=== PATIENT | female | born 1945 | race Caucasian/White ===

== ENCOUNTER 2017-07-16 10:10 | Inpatient (IN) | payer OTHER ==
[2017-07-07 14:23] VITALS: BMI 27.0
--- NOTE | 2017-07-07 15:13 | PAT Medication Instructions ---
Service Date Jul 07, 2017. Current Home Medication List Amlodipine (Norvasc), 10 MG PO QAM Aspirin (Aspirin Ec), 81 MG PO QAM Clopidogrel (Plavix), 75 MG PO QAM Ferrous Sulfate (Iron), 1 TAB PO QAM Furosemide (Lasix), 20 MG PO QAM Isosorbide Dinitrate (Isordil), 30 MG PO HS Linagliptin (Tradjenta), 1 TAB PO QAM Metformin Hcl (Glucophage), 500 MG PO BID Metoprolol Succ (Toprol Xl) (Toprol-Xl ), 50 MG PO HS Nitroglycerin (Nitrostat), 1 TAB SL UD Ramipril (Altace), 5 MG PO DAILY Rosuvastatin Calcium (Crestor), 40 MG PO HS Sertraline (Zoloft), 50 MG PO QAM Sertraline (Zoloft), 25 MG PO HS Tiotropium Cooks-Olodaterol (Stiolto Respimat 2.5-2.5 Mcg/Act), 2 PUFFS INH QAM Medication Instructions For Your Scheduled Surgery - Hold the following medications 5 days prior to surgery per surgeon and dialysis clinical manager: Clopidogrel (Plavix), 75 MG PO QAM - Hold the following medications 48 hours prior to surgery: Metformin Hcl (Glucophage), 500 MG PO BID - Hold the following medications the morning of surgery: Ferrous Sulfate (Iron), 1 TAB PO QAM Furosemide (Lasix), 20 MG PO QAM Linagliptin (Tradjenta), 1 TAB PO QAM Ramipril (Altace), 5 MG PO DAILY - Take the following medications the morning of surgery with a sip of water: Tiotropium Cooks-Olodaterol (Stiolto Respimat 2.5-2.5 Mcg/Act), 2 PUFFS INH QAM Sertraline (Zoloft), 50 MG PO QAM Nitroglycerin (Nitrostat), 1 TAB SL UD (if needed) Amlodipine (Norvasc), 10 MG PO QAM Aspirin (Aspirin Ec), 81 MG PO QAM (okay to continue per surgeon per patient) - Take the following medications as scheduled the night before surgery: Sertraline (Zoloft), 25 MG PO HS Rosuvastatin Calcium (Crestor), 40 MG PO HS Nitroglycerin (Nitrostat), 1 TAB SL UD (if needed) Metoprolol Succ (Toprol Xl) (Toprol-Xl ), 50 MG PO HS Isosorbide Dinitrate (Isordil), 30 MG PO HS If you have any questions please call us at [phone] or [phone] or [phone]
[2017-07-07 15:33] LABS: BASO % 0.5 %; BASO ABS # 0.03 K/uL (0-0.2); COMPLETE YES; EOS % 3.9 %; HEMATOCRIT 39.8 % (37-47); IG% 0.2 %; LYMPH % 17.6 %; LYMPH ABS # 1.12 K/uL (1.2-3.4); MEAN CELL VOLUME 91.5 fL (80-100); MEAN CORPUSCULAR HEMOGLOBIN 29.9 pg (25-34); MEAN CORPUSCULAR HGB CONC 32.7 g/dl (32-36); MEAN PLATELET VOLUME 9.7 fL (7.4-10.4); MONO % 12.6 %; NEUT % 65.2 %; PLATELET COUNT 251 K/uL (130-400); RED BLOOD COUNT 4.35 M/uL (4.2-5.4); WHITE BLOOD COUNT 6.37 K/uL (4.8-10.8)
[2017-07-07 15:46] LABS: PROTHROMBIN TIME (PATIENT) 10.2 SECONDS (9.0-12.0)
[2017-07-07 16:14] LABS: BUN/CREATININE RATIO 13.9 (10-20); CALCIUM 10.1 mg/dl (8.5-10.1); CREATININE 2.7 mg/dl (0.60-1.20); POTASSIUM 4.9 mmol/L (3.5-5.1)
[~2017-07-16] VITALS: Ht 160 cm; Wt 74.2 kg
[2017-07-16] VITALS (12 sets, daily range): BP systolic 118–188; BP diastolic 52–87; PULSE 57–69; TEMP 35.3–36.6; O2SAT 97–99; Ht 160 cm; Wt 74.2 kg
[~2017-07-16 10:10] MED LIST: AMLO-114 PO; ASPI81TA28 PO; ATROPINE SULFATE 0.1 MG/ML 5ML SYR IV PRN; CLOP1TAB15 PO; CRS/10 PO; EpHEDrine SULFATE INJ 50 MG/ML AMP IV PRN; FENTANYL CITRATE INJ 50 MCG/1 ML 2 ML VIAL IV PRN; FERR1TAB23 PO; FURO-85 PO; GLC/500 PO; HYDROmorphone INJ 1 MG/ML SYR IV PRN; ISOS30TA51 PO; LINA1TAB PO; METO1TAB69 PO; NTRGSL/4 SL; ONDANSETRON INJ 2 MG/ML 2 ML VIAL IV PRN; PRLSR20 PO; RAMI5CAP32 PO; SERT25TA PO; SERT50TA PO; SODIUM CHLORIDE 0.9% 1000ML 1,000 ML IV SCH; TIOT1AER INH
--- NOTE | 2017-07-16 11:18 | History & Physical Bridge Note ---
H&P Re-Evaluation Bridge Note: I have examined the patient, reviewed the History & Physical and in the interval since the performance of the History & Physical I have noted the following changes of clinical significance: No changes noted
[2017-07-16] MEDS ORDERED: FENTANYL CITRATE INJ 50 MCG/1 ML 2 ML VIAL ONE ×4 (11:32→20:48)
[2017-07-16 11:41] LABS: BUN/CREATININE RATIO 13.6 (10-20); CALCIUM 9.7 mg/dl (8.5-10.1); CREATININE 1.8 mg/dl (0.60-1.20); POTASSIUM 4.1 mmol/L (3.5-5.1)
[2017-07-16] MEDS ORDERED: BUPIVACAINE LIPOSOME 1/3% 266 MG/20 ML VIAL INFIL ONE (11:46)
[2017-07-16] MEDS ORDERED: SODIUM CHLORIDE 0.9% PF 50 ML VIAL ONE (11:49)
[2017-07-16] MEDS ORDERED: PROPOFOL IV EMULSION 10 MG/ML 20 ML VIAL IV ONE (13:55)
[2017-07-16] MEDS ORDERED: CLINDAMYCIN PHOS 150 MG/ML 2 ML VIAL ONE (13:55)
[2017-07-16] MEDS ORDERED: LIDOCAINE HCL 2% 2 ML VIAL (20MG/ML) ONE (13:55)
[2017-07-16] MEDS ORDERED: LARYING-O-JET KIT (LTA) ONE ×2 (13:55)
[2017-07-16] MEDS ORDERED: ONDANSETRON INJ 2 MG/ML 2 ML VIAL ONE ×2 (13:55→19:11)
[2017-07-16] MEDS ORDERED: CISATRACURIUM BESYLATE IV SOLN 2 MG/ML 10 ML VIAL ONE (13:55)
[2017-07-16] MEDS ORDERED: DEXAMETHASONE SOD INJ 4 MG/ML VIAL ONE (13:55)
[2017-07-16] MEDS ORDERED: ROCURONIUM BROMIDE 10 MG/ML 5 ML VIAL IV ONE (13:55)
[2017-07-16] MEDS ORDERED: EpHEDrine SULFATE 50MG/5ML SYR ONE (13:55)
[2017-07-16] MEDS ORDERED: PHENYLEPHRINE HCL INJ 10 MG/ML VIAL ONE (14:51)
[2017-07-16] MEDS ORDERED: SURGICEL ABSORB HEMOSTAT 2IN X 14IN TOP ONE (15:31)
--- NOTE | 2017-07-16 18:05 | OPERATIVE REPORT ---
DATE OF OPERATION: 07/16/2017 PREOPERATIVE DIAGNOSIS: Non-small cell lung carcinoma, left upper lobe. POSTOPERATIVE DIAGNOSIS: Same. PROCEDURE: Videomediastinoscopy. SURGEON: Dr. Cuco Christine. FORESTRY AND WILDLIFE MANAGER: Eh Trammell PA-C. ANESTHESIA: General anesthesia endotracheal intubation. INDICATION FOR PROCEDURE AND FINDINGS: Narcisa Collado is a 71-year-old female who has somewhat compromised lung function, was found to have a non-small cell lung carcinoma in her left upper lobe. PET scan did not show any abnormalities in the mediastinum; however, I was a bit concerned about the size of the right level 4 node. The patient had to travel from [facility] to the [place], [place] and I felt that doing a mediastinoscopy with frozen section and then turning her and doing a thoracoscopic left upper lobectomy if the frozen sections is negative would be appropriate. We discussed this in detail. On 07/17/2017, I performed an uncomplicated mediastinoscopy and biopsied the right level 2, right level 4, right level 10, left level 7, left level 4 lymph nodes. We really got into no bleeding. She tolerated it well. Frozen sections are pending at the time of this dictation. PROCEDURE: The patient was brought to the operating room and laid in the supine position. General anesthesia induced and endotracheal intubation was performed with a single lumen tube. An incision was made one fingerbreadth above the sternal notch after the area had been properly prepped and draped in the usual sterile fashion, and after an appropriate timeout had been called and antibiotics had been given. She has a very thin neck and I went down to the strap muscles without difficulty and them in the direction of their fibers. I then was able to bluntly dissect the plane just anterior to the thyroid isthmus. The mediastinoscope was easily inserted and we could easily see all the way down to the cullen. I biopsied the level 2 node. Level 4 node was fairly fleshy and white. Level 10 node below the azygos was also biopsied. I then went down into the subcarinal area and biopsied a couple of different lymph nodes. One was acanthotic and appeared to be rather normal, but the other was hard and white also. I used the electrocautery to the level 4 area on the right a bit, but she really had minor oozing from the level 7 area and I packed this with a piece of Surgicel. Attention was then turned towards the left and I gently dissected out a lymph node from the left level 4 area which also appeared to be fairly fleshy. I biopsied this gingerly and did not use cautery. There was mild bleeding, but we packed the area with a Ray-Mara sponge for several minutes and then removed it and there was no further bleeding. The mediastinoscope was slowly removed. There was no evidence of further bleeding. 3-0 Vicryl was used to close the strap muscles direction of fibers and 4-0 Monocryl was used in running subcuticular fashion to approximate the wound edges. She tolerated it very well. We are waiting for the frozen sections now. I attest to the content of the Intraoperative Record and any orders documented therein. Any exceptions are noted below. FIDELINA
[2017-07-16] MEDS ORDERED: NITROGLYCERIN 0.4 MG SL PER TAB CHARGE SL SCH (18:15)
[2017-07-16] MEDS ORDERED: SODIUM CHLORIDE 0.9% 1000ML 1,000 ML IV SCH (18:15)
--- NOTE | 2017-07-16 18:45 | DIAGNOSTIC IMAGING REPORT ---
CHEST ONE VIEW PORTABLE CLINICAL HISTORY: 71 years-old Female presenting with SIVAKUMAR abnormality. TECHNIQUE: Portable upright AP view of the chest was obtained. COMPARISON: 06/17/2017 and 06/25/2017. FINDINGS: Large bore left pleural drain terminates at the apex. Median sternotomy wires noted with breakage of the superior and inferior most wires. Wire fragment displacement along the right superior wire unchanged. Surgical clips in the mediastinum and projecting over the epigastrium, unchanged. Atherosclerosis of aortic arch. Prominence of the cardiac silhouette, stable to slightly increased from prior. Elevation of the left hemidiaphragm. Vague left basilar opacity new from prior. Trace left pneumothorax may be present anteromedially. No large effusion. Osseous structures normal. Upper abdomen normal. IMPRESSION: 1. Left basilar opacity could represent consolidation/infection. 2. Large bore left pleural drain terminates at the apex. A possible trace left apical pneumothorax is noted, however, the appearance is not changed since 06/25/2017. 3. Cardiomegaly. Electronically signed by: Tobias Ramos M.D. 07/16/2017 6:44 PM Dictated Date/Time: 07/16/2017 6:40 PM
--- NOTE | 2017-07-16 18:47 | Anesthesiology Progress Note ---
Anesthesia Post Op Note Date & Time Jul 16, 2017 at 18:46 Vital Signs Pain Intensity: 1 Vital Signs Past 12 Hours Date Time Temp Pulse Resp B/P (MAP) Pulse Ox O2 Delivery O2 Flow Rate FiO2 07/16/17 18:35 61 16 134/52 98 Oxymask 4 07/16/17 18:25 60 16 135/60 98 Oxymask 10 07/16/17 18:15 64 16 139/66 98 Oxymask 10 07/16/17 18:07 36 71 16 158/74 97 Oxymask 10 07/16/17 11:18 36.6 63 16 188/87 (120) 97 Room Air Notes Mental Status: alert / awake / arousable, participated in evaluation Pt Amnestic to Procedure: Yes Nausea / Vomiting: adequately controlled Pain: adequately controlled Airway Patency, RR, SpO2: stable & adequate BP & HR: stable & adequate Hydration State: stable & adequate Anesthetic Complications: no major complications apparent
--- NOTE | 2017-07-16 19:20 | Critical Care Consultation ---
Critical Care Consultation Date of Consultation: Jul 16, 2017. Attending Physician: Cuco Christine MD Reason for Consultation: Respiratory insufficiency, status post left upper lobectomy. History of Present Illness I personally examined this patient, reviewed her clinical and laboratory data, interpreted heart x-ray and formulated further plan of care. In summary, the patient is a 71 year old female with COPD who was found to have left upper lobe non-small cell lung cancer. PET scan did not reveal any mediastinal abnormalities. There was concern about the size of the right level 4 lymph node. Patient underwent uncomplicated mediastinoscopy, and left upper lobectomy. Minimal estimated blood loss. Patient was extubated and postoperative holding area and transferred critically ill to the surgical intensive care and for further management. Past Medical/Surgical History COPD, Hypertension, Peripheral vascular disease, Coronary artery disease, GERD, Chronic kidney disease stage 2, Depression, Diabetes mellitus type 2. Family History Heart problems, COPD, High blood pressure. Social History Smoking Status: Former Smoker Drug Use: none Occupation Status: retired Allergies Coded Allergies: No Known Allergies (Unverified , 07/16/17) Home Medications Scheduled Amlodipine (Norvasc), 10 MG PO QAM Aspirin (Aspirin Ec), 81 MG PO QAM Clopidogrel (Plavix), 75 MG PO QAM Ferrous Sulfate (Iron), 1 TAB PO QAM Furosemide (Lasix), 20 MG PO QAM Isosorbide Dinitrate (Isordil), 30 MG PO HS Linagliptin (Tradjenta), 1 TAB PO QAM Metformin Hcl (Glucophage), 500 MG PO BID Metoprolol Succ (Toprol Xl) (Toprol-Xl ), 50 MG PO HS Nitroglycerin (Nitrostat), 1 TAB SL UD Rosuvastatin Calcium (Crestor), 40 MG PO HS Sertraline (Zoloft), 50 MG PO QAM Sertraline (Zoloft), 25 MG PO HS Tiotropium [place]owa-Olodaterol (Stiolto Respimat 2.5-2.5 Mcg/Act), 2 PUFFS INH QAM Current Inpatient Medications Current Inpatient Medications Medications (Trade) Dose Ordered Sig/Josep Route Start Time Stop Time Status Last Admin Dose Admin Sodium Chloride 1,000 ml @ 15 mls/hr Q24H IV 07/16/17 06:00 07/17/17 05:59 07/16/17 11:36 15 MLS/HR Amlodipine Besylate (Norvasc Tab) 10 mg QAM PO 07/17/17 09:00 08/16/17 08:59 UNV Aspirin (Ecotrin Tab) 81 mg QAM PO 07/17/17 09:00 08/16/17 08:59 UNV Metoprolol Succinate (Toprol Xl Tab) 50 mg HS PO 07/16/17 21:00 08/15/17 20:59 UNV Nitroglycerin (Nitrostat Tab) 0.4 mg UD SL 07/16/17 18:15 08/15/17 18:14 UNV Rosuvastatin Calcium (Crestor Tab) 40 mg HS PO 07/16/17 21:00 08/15/17 20:59 UNV Sertraline HCl (Zoloft Tab) 25 mg HS PO 07/16/17 21:00 08/15/17 20:59 UNV Sertraline HCl (Zoloft Tab) 50 mg QAM PO 07/17/17 09:00 08/16/17 08:59 UNV Non-Formulary Medication (Ferrous Sulfate (Iron)) 1 tab QAM PO 07/17/17 09:00 08/16/17 08:59 UNV Non-Formulary Medication (Isosorbide Dinitrate (Isordil)) 30 mg HS PO 07/16/17 21:00 08/15/17 20:59 UNV Non-Formulary Medication (Tiotropium Kiowa-Olodaterol (Stiolto Respimat 2.5-2.5 Mcg/Act)) 2 puffs QAM INH 07/17/17 09:00 08/16/17 08:59 UNV Oxycodone HCl (Roxicodone Immediate Rel Tab) 5 mg Q6H PRN PO 07/16/17 18:15 07/30/17 18:14 UNV Acetaminophen 1000 mg/Empty Bag 100 ml @ 400 mls/hr Q8H IV 07/16/17 18:15 08/15/17 18:14 UNV Enoxaparin Sodium (Lovenox Inj) 40 mg DAILY SQ 07/17/17 09:00 08/16/17 08:59 UNV Ondansetron HCl (Zofran Inj) 4 mg Q4H PRN IV 07/16/17 18:15 08/15/17 18:14 UNV Docusate Sodium (coLACE CAP) 100 mg BID PO 07/16/17 21:00 08/15/17 20:59 UNV Cefazolin Sodium 2000 mg/Dextrose 110 ml @ 100 mls/hr Q8H IV 07/16/17 18:15 07/17/17 03:20 UNV Metoclopramide HCl (Reglan Inj) 10 mg Q8 IV. 07/16/17 22:00 07/17/17 21:59 UNV Morphine Sulfate (MoRPHine SULFATE INJ) Q1H PRN IV 07/16/17 18:15 07/30/17 18:14 UNV Sodium Chloride 1,000 ml @ 75 mls/hr [id number] IV 07/16/17 18:15 08/15/17 18:14 UNV Insulin Aspart (novoLOG ASPART) SLIDING SCALE G... ACHS SC 07/16/17 21:00 08/15/17 20:59 UNV Review of Systems Constitutional: + weakness, + fatigue Respiratory: + problem reported (incisional pain) Musculoskeletal: + problem reported (back pain) Physical Exam Date Time Temp Pulse Resp B/P (MAP) Pulse Ox O2 Delivery O2 Flow Rate FiO2 07/16/17 19:00 36.3 63 16 127/53 97 Oxymask 4 07/16/17 18:50 36.3 62 16 137/54 97 Oxymask 4 07/16/17 18:35 61 16 134/52 98 Oxymask 4 07/16/17 18:25 60 16 135/60 98 Oxymask 10 07/16/17 18:15 64 16 139/66 98 Oxymask 10 07/16/17 18:07 36 71 16 158/74 97 Oxymask 10 07/16/17 11:18 36.6 63 16 188/87 (120) 97 Room Air Patient is elderly female who came to the SICU extubated from the PACU. She is still lethargic, cough is weak, uncomfortable secondary to incisional pain. Neurologically, patient is alert and oriented 3. She is weak. Speech is clear. Head was atraumatic, normocephalic. Pupils were equal, round and reactive to light. Mouth mucosa was moist. Neck was supple, no JVD. Lungs revealed decreased breath sounds at bases. Neck and chest incisions were dry, intact. Left-sided chest tube with 75 mL of serosanguineous fluid, minimal ear leak with cough. Heart was beating regularly, normal S1-S2. There was no S3. Abdomen was soft, nontender, no hepatosplenomegaly, no palpable masses. Lower extremities were warm, no calf tenderness, no edema, well-perfused. Laboratory Results Last 24 Hours Test 07/16/17 11:01 Sodium Level 139 mmol/L Potassium Level 4.1 mmol/L Chloride Level 107 mmol/L Carbon Dioxide Level 27 mmol/L Anion Gap 5.0 mmol/L Blood Urea Nitrogen 24 mg/dl Creatinine 1.80 mg/dl Est Creatinine Clear Calc Drug Dose 27.4 ml/min Estimated GFR () 32.5 Estimated GFR (Non- 28.0 BUN/Creatinine Ratio 13.6 Bedside Glucose 98 mg/dl Random Glucose 96 mg/dl Calcium Level 9.7 mg/dl Assessment & Plan 1. Left upper lobe non-small cell cancer, sp mediastinoscopy and left upper lobectomy. Left chest tube 75 mL of serosanguineous drainage, no obvious air leak. 2. Respiratory insufficiency. We'll titrate oxygen to keep saturation above 92 %, incentive spirometry for atelectasis prevention. COPD, inhalers on as needed basis. 3. Hemodynamics: Sinus rhythm, adequate blood pressure, well perfused peripherally. History of coronary artery disease, no signs of cardiac ischemia. We'll continue with home metoprolol. 4. Renal insufficiency, CK-MB stage II. We'll continue with gentle hydration, replace electrolytes appropriately. 5. Postoperative pain, we'll continue with morphine, oxycodone, Tylenol on an as needed basis. 6. DVT prophylaxis with Lovenox. 7. Hyperglycemia on insulin sliding scale. CCT = 32 min.
[2017-07-16] MEDS: METOCLOPRAMIDE HCL INJ 5 MG/ML 2 ML VIAL IV. SCH (20:20)
[2017-07-16] MEDS ORDERED: INFLUENZA ADMINISTRATION CHARGE ONE (20:45)
[2017-07-16] MEDS ORDERED: INFLUENZA VIRUS QUAD VACCINE 0.5 ML SYR IM. ONE (20:45)
[2017-07-16] MEDS ORDERED: NURSING VERBAL MED ORDER ONE (20:45)
[2017-07-16] MEDS: INSULIN ASPART 100 UNITS/ML 3 ML PEN SC SCH (20:57)
[2017-07-16] MEDS: SERTRALINE HCL 50 MG TAB PO SCH (21:00)
[2017-07-16] MEDS: DOCUSATE SODIUM 100 MG CAP PO SCH (21:00)
[2017-07-16] MEDS: FENTANYL CITRATE INJ 50 MCG/1 ML 2 ML VIAL IV PRN (21:00)
[2017-07-16] MEDS: ROSUVASTATIN CALCIUM 20 MG TAB PO SCH (21:00)
[2017-07-16] MEDS: ISOSORBIDE DINITRATE 10 MG TAB PO SCH (21:00)
[2017-07-16] MEDS: METOPROLOL SUCC 50MG EXT REL TAB PO SCH (21:00)
[2017-07-16] MEDS: METOPROLOL TARTRATE 1 MG/ML VIAL IV. SCH (21:02)
[2017-07-16] MEDS: ACETAMINOPHEN IV 1,000 MG in EMPTY BAG 0 ML IV SCH (21:06)
[2017-07-16] MEDS ORDERED: INFLUENZA VACCINE HIGH DOSE 65+ 0.5 ML SYR IM. ONE (21:45)
[2017-07-16] MEDS: OXYCODONE HCL IR 5 MG TAB (IMMEDIATE RELEASE) PO PRN (21:58)
[2017-07-16] MEDS: CEFAZOLIN IV 2,000 MG in DEXTROSE 5% 50ML 100 ML IV SCH (21:59)
[2017-07-17] VITALS (17 sets, daily range): BP systolic 92–151; BP diastolic 44–66; PULSE 59–82; TEMP 36.6–37; O2SAT 91–99
--- NOTE | 2017-07-17 00:21 | OPERATIVE REPORT ---
DATE OF OPERATION: 07/16/2017 PREOPERATIVE DIAGNOSIS: Nonsmall cell lung cancer, left upper lobe. POSTOPERATIVE DIAGNOSIS: Same. PROCEDURE: 1. Thoracoscopic left upper lobectomy with mediastinal lymph node dissection. 2. Extensive lysis of adhesions with preservation of patent internal mammary artery graft. SURGEON: Dr. Christine. CORRECTIONAL OFFICER SERGEANT: MARLO Vernon. ANESTHESIA: General anesthesia with endotracheal intubation using double lumen tube. SPECIFICS OF PROCEDURE: This is a 71-year-old female who was found to have a nonsmall cell lung CA of her left upper lobe. I was a bit concerned about the closeness to the chest wall; however, after it was needled and her workup was done, we did not feel she had metastatic disease. However, I wanted to sample her mediastinum. I did a video mediastinoscopy and biopsied 5 different lymph node stations and they were all negative for carcinoma, although there were non-necrotizing granulomas suggestive of sarcoidosis. The patient was then turned on her right side and underwent a thoracoscopic left upper lobectomy. This was a difficult case as the patient had marked adhesions. She must have had an inflammatory process sometime in the past as both lobes were completely stuck to the chest wall. I was finally able to get in and take these down with the Harmonic scalpel, went all the way down, took the lower lobe off the diaphragm, and then with some difficulty, all this from the mediastinal tissues. She had also had open heart surgery in the past with a patent internal mammary artery graft which was supplying much of her heart. I attempted to take down the left upper lobe but it was densely adherent to the medial left upper chest. I finally decided to simply take the left upper lobe first. For this reason, I took the arteries, veins and airway, and then coming up from posterior to anterior orientation, I was able to finally identify this pedicle and care was taken to avoid injury to it. I was finally able to get the lung off this and remove it. It was delivered off the table. She tolerated it well and was extubated in the room. PROCEDURE IN DETAIL: The patient was brought to the operating room and laid in supine position. General anesthesia was induced and endotracheal intubation was performed. This was done with a double lumen tube. An arterial line and Echols catheter were placed. The patient was turned into right lateral decubitus position, the left chest prepped and draped in usual sterile fashion. One lung ventilation ensued and a small Veress needle was placed into an area 1 interspace below the scapula tip and a centimeter or so posterior. Upon inflating this, I then put a 5 mm scope through a 5 mm trocar and it could be seen there were marked adhesions. Some of these were rather flimsy and I was able to take these down a bit more. I opened the incision a bit and I was able to put a Kitner and then a Harmonic scalpel and took down enough for me to get another port in at about the 5th interspace anteriorly. With these two, I was able to take down the adhesions rather extensively and then put another port inferiorly in line with the fissure and anterior. I then meticulously took down all of the adhesions with the Harmonic scalpel and bluntly. All of this was done except for the medial aspect of the left upper chest as the medial portion of the left upper lobe was densely adherent. I attempted to take this down both anteriorly and then posteriorly. The posterior aspect freed up pretty well and I was able to pull the left lower lobe off the diaphragm, the aorta, and then freed up the inferior pulmonary ligament. I then completed the fissure posteriorly with the stapler after dissecting this out. I was taking lymph nodes out along the way. I then was able to separate the medial aspect of the lower lobe, the upper lobe and the lingula from the mediastinum and the pericardial fat and pericardial tissues. I identified the phrenic nerve and care was taken to avoid injury to this. I then freed up the anterior fissure and used a Harmonic scalpel as well as a stapler to divide this. I was easily able to identify the artery. Upon freeing this up, I divided the artery to the lingula and several more large branches, so we divided all of the arteries. It lent itself well to a takedown of the bronchus, so I fired Endo-CHEY stapler across the bronchus, and then retracting upward, could easily see the vein. I dissected this out, and bringing the lung anterior, I then pursued a posterior course, I was able to bluntly and sharply take this down until I got to the pedicle. I identified as I saw several clips. It was densely adherent to the lung. For this reason, I then started superiorly and then worked my way anteriorly, inferiorly and posteriorly in a circular fashion sequentially until I finally was able to free this up. I had to leave a few small areas on the pedicle but they were densely adherent. At any rate, the patient never had any change in her EKG and she never dropped her pressure. Actually, from a hemodynamic standpoint, she has tolerated this procedure very well. I did a level 5 lymph node. I did not see a level 6 even though I opened up the pleura quite widely. I took out a level 10, level 11 and 12, taking out the inferior pulmonary ligament. I did not see much in the way of any lymphadenopathy. I did not take a level 8 or 9. In addition, I did not see a level 6. I had done a mediastinoscopy to stage her mediastinum preoperatively. I then used 266 mg of Exparel mixed with 60 mL total of normal saline and injected from the 2nd to the 11th rib to perform an intrathoracic intercostal block. We then placed a 24-Nepalese chest tube and we really had very little in the way of an air leak. It was directed toward the apex and held in place with heavy silk suture. 0 Vicryl was used to close the muscle layers and the 2 remaining thoracostomy incisions and then 4-0 Monocryl was used to close all 3 incisions in a running subcuticular fashion. She tolerated it well. I attest to the content of the Intraoperative Record and any orders documented therein. Any exceptions are noted below. FIDELINA
[2017-07-17] MEDS: METOPROLOL TARTRATE 1 MG/ML VIAL IV. SCH ×2 (00:44→04:54)
[2017-07-17] MEDS: FENTANYL CITRATE INJ 50 MCG/1 ML 2 ML VIAL IV PRN (03:20)
[2017-07-17] MEDS: METOCLOPRAMIDE HCL INJ 5 MG/ML 2 ML VIAL IV. SCH ×2 (03:23→12:42)
[2017-07-17] MEDS: ACETAMINOPHEN IV 1,000 MG in EMPTY BAG 0 ML IV SCH (05:39)
[2017-07-17] MEDS: CEFAZOLIN IV 2,000 MG in DEXTROSE 5% 50ML 100 ML IV SCH (05:40)
[2017-07-17 05:44] LABS: COMPLETE YES; HEMATOCRIT 30.3 % (37-47); IG% 0.2 %; LYMPH % 4.8 %; LYMPH ABS # 0.52 K/uL (1.2-3.4); MEAN CELL VOLUME 91.8 fL (80-100); MEAN CORPUSCULAR HGB CONC 32.7 g/dl (32-36); MEAN PLATELET VOLUME 9.9 fL (7.4-10.4); MONO % 9.9 %; NEUT % 85.1 %; PLATELET COUNT 233 K/uL (130-400); WHITE BLOOD COUNT 10.76 K/uL (4.8-10.8)
[2017-07-17 06:24] LABS: BUN/CREATININE RATIO 16.2 (10-20); CALCIUM 8.2 mg/dl (8.5-10.1); CREATININE 1.7 mg/dl (0.60-1.20); POTASSIUM 4.9 mmol/L (3.5-5.1)
--- NOTE | 2017-07-17 08:52 | SURGERY PROGRESS NOTE ---
DATE: 07/17/2017 DATE: 07/17/2017 Ms. Collado is sitting up in chair eating breakfast this morning. She underwent a thoracoscopic lobectomy after mediastinoscopy yesterday for an early stage nonsmall cell lung carcinoma. She looks very good today. Her pressure has been quite good. She has had no arrhythmias. Her blood pressure has been stable. She has had good urine output, 250 mL this last shift. Her chest tube has a small air leak. She has some serous drainage from her chest tube, about 300 mL this past shift. She also has some oozing around her chest tube site. Her lungs are actually clear. She has no wheezing, no rhonchi. She is moving air well. He has a regular rate and rhythm of her heart in the 60s. She really has very good pain control. She is on 2 liters of O2 with a sat of 96-99%. Sequential compression devices are in place. Her Echols is draining clear urine. Review of her labs white count is 10,760. Her hemoglobin is 9.9. Platelet count stable at 233,000. Her sodium is 140, her BUN and creatinine are 27 and 1.7, which compares favorably to the preop of 24 and 1.8. Her x-ray I think looks quite good. She has full expansion of her lung. She has some mild volume loss on the left. Chest tube is in good place. ASSESSMENT AND PLAN: Postoperative day #1 status post thoracoscopic left upper lobectomy after video mediastinoscopy for what appears to be an early stage adenocarcinoma of the lung. She is doing well and we are going to transfer her to the surgical bajwa on the third floor.
[2017-07-17] MEDS ORDERED: FERROUS SULFATE 325 MG TAB PO SCH (09:00)
--- NOTE | 2017-07-17 09:07 | DIAGNOSTIC IMAGING REPORT ---
CHEST ONE VIEW PORTABLE HISTORY: 71 years-old Female SIVAKUMAR acute left upper chest pain COMPARISON: Portable chest radiograph 07/16/2017 TECHNIQUE: Portable upright AP view of the chest FINDINGS: Cardiac silhouette is mildly enlarged, unchanged. Prior median sternotomy with fractured superior most sternal wire, unchanged. There is atherosclerosis of the aorta. Surgical clips project over the left midlung and hilar region. Large bore left-sided chest tube is in stable positioning. There is persistent mild subcutaneous emphysema along the lateral left chest wall. Subtle curvilinear lucency of the medial aspect left lung apex is unchanged. Pleural thickening of the left lung apex is seen. Small left pleural effusion with left basilar consolidation. Chronic interstitial changes are seen throughout the right lung. Bones are grossly intact. IMPRESSION: 1. Stable positioning of left-sided chest tube with persistent subtle linear lucency adjacent to the medial aspect of the left lung apex which may reflect a trace pneumothorax, unchanged. 2. Small left pleural effusion with persistent left basilar consolidation. The above report was generated using voice recognition software. It may contain grammatical, syntax or spelling errors. Electronically signed by: Davonte Hartmann M.D. 07/17/2017 9:06 AM Dictated Date/Time: 07/17/2017 9:03 AM
[2017-07-17] MEDS: INSULIN ASPART 100 UNITS/ML 3 ML PEN SC SCH ×6 (09:26→22:11)
[2017-07-17] MEDS: ENOXAPARIN 30 MG/0.3 ML SYR SQ SCH (09:31)
[2017-07-17] MEDS: SERTRALINE HCL 50 MG TAB PO SCH ×2 (09:32→21:27)
[2017-07-17] MEDS: ASPIRIN 81 MG ECTAB PO SCH (09:34)
[2017-07-17] MEDS: AMLODIPINE BESYLATE 5 MG TAB PO SCH (09:34)
[2017-07-17] MEDS: DOCUSATE SODIUM 100 MG CAP PO SCH ×2 (09:35→21:27)
[2017-07-17] MEDS: OXYCODONE HCL IR 5 MG TAB (IMMEDIATE RELEASE) PO PRN ×2 (11:34→19:11)
[2017-07-17] MEDS: FUROSEMIDE 20 MG TAB PO SCH (12:42)
[2017-07-17] MEDS ORDERED: NURSING VERBAL MED ORDER ONE (12:45)
--- NOTE | 2017-07-17 12:54 | Critical Care Progress Note ---
Critical Care Progress Note Date of Service Jul 17, 2017. Attending Dr. Fabiano Ruffin I personally examined this patient, reviewed her clinical and laboratory data, interpreted heart x-ray and formulated further plan of care. In summary, the patient is a 71 year old female with COPD who was found to have left upper lobe non-small cell lung cancer. PET scan did not reveal any mediastinal abnormalities. There was concern about the size of the right level 4 lymph node. Patient underwent uncomplicated mediastinoscopy, and left upper lobectomy (07/16). Extubated in the PACU. Uneventful night in the ICU. Patient complains of incisional chest pain, weak cough. Assessment & Plan 1. Left upper lobe non-small cell cancer, POD # 1 sp mediastinoscopy and left upper lobectomy. Minimal air leak with cough, minimal output. 2. Respiratory insufficiency. We'll titrate oxygen to keep saturation above 92 %, incentive spirometry for atelectasis prevention. COPD, inhalers on as needed basis. 3. Hemodynamics: Sinus rhythm, adequate blood pressure, well perfused peripherally. Coronary artery disease, no signs of cardiac ischemia. We'll continue with home metoprolol and Norvasc. 4. Renal insufficiency, CK-MB stage II. We will allow by mouth oral intake 5. Postoperative pain, we'll continue with morphine, oxycodone, Tylenol on an as needed basis. 6. DVT prophylaxis with Lovenox. 7. Hyperglycemia on insulin sliding scale. Patient has improved, so she will be transferred to the regular nursing floor for further management. 19681 note. Consults & Procedures Consultants: Critical care medicine Procedures: Mediastinoscopy, left upper lobectomy. Data Medications: Current Inpatient Medications Medications (Trade) Dose Ordered Sig/Josep Route Start Time Stop Time Status Last Admin Dose Admin Amlodipine Besylate (Norvasc Tab) 10 mg QAM PO 07/17/17 09:00 08/16/17 08:59 07/17/17 09:34 10 MG Aspirin (Ecotrin Tab) 81 mg QAM PO 07/17/17 09:00 08/16/17 08:59 07/17/17 09:34 81 MG Metoprolol Succinate (Toprol Xl Tab) 50 mg HS PO 07/16/17 21:00 08/15/17 20:59 Nitroglycerin (Nitrostat Tab) 0.4 mg UD SL 07/16/17 18:15 08/15/17 18:14 Rosuvastatin Calcium (Crestor Tab) 40 mg HS PO 07/16/17 21:00 08/15/17 20:59 Sertraline HCl (Zoloft Tab) 25 mg HS PO 07/16/17 21:00 08/15/17 20:59 Sertraline HCl (Zoloft Tab) 50 mg QAM PO 07/17/17 09:00 08/16/17 08:59 07/17/17 09:32 50 MG Isosorbide Dinitrate (Isordil Tab) 30 mg HS PO 07/16/17 21:00 08/15/17 20:59 Miscellaneous Information (Order Awaiting Action) 1 ea QS N/A 07/17/17 00:00 08/16/17 00:00 Oxycodone HCl (Roxicodone Immediate Rel Tab) 5 mg Q6H PRN PO 07/16/17 18:15 07/30/17 18:14 07/17/17 11:34 5 MG Enoxaparin Sodium (Lovenox Inj) 30 mg DAILY SQ 07/17/17 09:00 08/16/17 08:59 07/17/17 09:31 30 MG Ondansetron HCl (Zofran Inj) 4 mg Q4H PRN IV 07/16/17 18:15 08/15/17 18:14 Docusate Sodium (coLACE CAP) 100 mg BID PO 07/16/17 21:00 08/15/17 20:59 07/17/17 09:35 100 MG Morphine Sulfate (MoRPHine SULFATE INJ) Q1H PRN IV 07/16/17 18:15 07/30/17 18:14 Insulin Aspart (novoLOG ASPART) SLIDING SCALE G... ACHS SC 07/16/17 21:00 08/15/17 20:59 07/16/17 20:57 4 UNITS Furosemide (Lasix Tab) 20 mg QAM PO 07/17/17 11:00 08/16/17 10:59 Miscellaneous Information (Nursing Verbal Med Order) 1 ea ONE ONCE N/A 07/17/17 12:45 07/17/17 12:46 UNV Vital Signs: Date Time Temp Pulse Resp B/P (MAP) Pulse Ox O2 Delivery O2 Flow Rate FiO2 07/17/17 09:40 36.6 66 20 97 2.0 07/17/17 08:00 97 Nasal Cannula 2.0 07/17/17 05:01 66 20 128/56 (80) 96 07/17/17 05:00 66 17 97 07/17/17 04:54 62 104/50 07/17/17 04:15 99 Nasal Cannula 2.0 07/17/17 04:01 36.6 64 11 104/50 (68) 95 07/17/17 04:00 65 20 95 07/17/17 03:01 66 13 123/54 (77) 97 07/17/17 03:00 65 16 95 07/17/17 02:01 62 17 112/49 (70) 95 07/17/17 02:00 63 18 96 07/17/17 01:01 61 19 92/44 (60) 98 07/17/17 01:00 59 15 97 07/17/17 00:44 58 115/57 07/17/17 00:01 36.9 63 16 115/57 (76) 98 07/17/17 00:00 65 15 97 07/17/17 00:00 99 Nasal Cannula 2.0 07/16/17 23:01 57 16 121/52 (75) 99 07/16/17 23:00 58 16 98 07/16/17 22:01 64 15 118/57 (77) 99 07/16/17 22:00 99 Nasal Cannula 3.0 07/16/17 22:00 65 21 99 07/16/17 21:02 69 140/64 07/16/17 21:01 65 22 125/54 (77) 99 07/16/17 21:00 67 14 99 07/16/17 20:04 35.6 69 14 140/64 07/16/17 20:01 68 19 130/57 (81) 99 07/16/17 20:00 35.3 67 21 99 07/16/17 19:40 97 Nasal Cannula 3.0 07/16/17 19:14 140/64 (89) 07/16/17 19:00 36.3 63 16 127/53 97 Oxymask 4 07/16/17 18:50 36.3 62 16 137/54 97 Oxymask 4 07/16/17 18:35 61 16 134/52 98 Oxymask 4 07/16/17 18:25 60 16 135/60 98 Oxymask 10 07/16/17 18:15 64 16 139/66 98 Oxymask 10 07/16/17 18:07 36 71 16 158/74 97 Oxymask 10 Laboratory Results: Last 24 Hours Test 07/16/17 20:53 07/17/17 05:32 07/17/17 05:50 07/17/17 12:18 Bedside Glucose 231 mg/dl 158 mg/dl 148 mg/dl White Blood Count 10.76 K/uL Red Blood Count 3.30 M/uL Hemoglobin 9.9 g/dL Hematocrit 30.3 % Mean Corpuscular Volume 91.8 fL Mean Corpuscular Hemoglobin 30.0 pg Mean Corpuscular Hemoglobin Concent 32.7 g/dl Platelet Count 233 K/uL Mean Platelet Volume 9.9 fL Neutrophils (%) (Auto) 85.1 % Lymphocytes (%) (Auto) 4.8 % Monocytes (%) (Auto) 9.9 % Eosinophils (%) (Auto) 0.0 % Basophils (%) (Auto) 0.0 % Neutrophils # (Auto) 9.16 K/uL Lymphocytes # (Auto) 0.52 K/uL Monocytes # (Auto) 1.06 K/uL Eosinophils # (Auto) 0.00 K/uL Basophils # (Auto) 0.00 K/uL RDW Standard Deviation 49.1 fL RDW Coefficient of Variation 14.5 % Immature Granulocyte % (Auto) 0.2 % Immature Granulocyte # (Auto) 0.02 K/uL Sodium Level 140 mmol/L Potassium Level 4.9 mmol/L Chloride Level 112 mmol/L Carbon Dioxide Level 20 mmol/L Anion Gap 8.0 mmol/L Blood Urea Nitrogen 27 mg/dl Creatinine 1.70 mg/dl Est Creatinine Clear Calc Drug Dose 29.7 ml/min Estimated GFR () 34.8 Estimated GFR (Non- 30.0 BUN/Creatinine Ratio 16.2 Random Glucose 161 mg/dl Calcium Level 8.2 mg/dl
[2017-07-17] MEDS: MoRPHine SULFATE 2 MG/ML CARP IV PRN ×2 (20:24→23:07)
[2017-07-17] MEDS: METOPROLOL SUCC 50MG EXT REL TAB PO SCH (21:26)
[2017-07-17] MEDS: ROSUVASTATIN CALCIUM 20 MG TAB PO SCH (21:27)
[2017-07-17] MEDS: ISOSORBIDE DINITRATE 10 MG TAB PO SCH (21:27)
[2017-07-18] VITALS (7 sets, daily range): BP systolic 133–147; BP diastolic 55–68; PULSE 70–75; TEMP 36.6–36.7; O2SAT 88–94
[2017-07-18] MEDS: OXYCODONE HCL IR 5 MG TAB (IMMEDIATE RELEASE) PO PRN ×3 (02:21→16:33)
[2017-07-18] MEDS: MoRPHine SULFATE 2 MG/ML CARP IV PRN ×3 (05:29→20:59)
--- NOTE | 2017-07-18 08:48 | SURGERY PROGRESS NOTE ---
DATE: 07/18/2017 Ms. Collado is now 48 hours out from her mediastinoscopy and thoracoscopic left upper lobectomy with mediastinal lymph node dissection. She looks very good. Her drainage has decreased. She was oozing around her chest tube site, but it appears that she is no longer doing that. Her chest tube drainage has decreased. She has no air leak. Quite frankly, I am very happy about her. I am going to let her go home tomorrow after I remove her chest tube. We will check labs and a chest x-ray in the morning. Overall, I am very happy with her. She is moving air well. All of her incisions are clean. She has pain that is easily controlled. FIDELINA
[2017-07-18] MEDS: TIOTROPIUM BROMIDE-OLODATEROL 2.5-2.5MCG/ACT INH SCH (09:56)
[2017-07-18] MEDS: AMLODIPINE BESYLATE 5 MG TAB PO SCH (09:57)
[2017-07-18] MEDS: DOCUSATE SODIUM 100 MG CAP PO SCH ×2 (09:57→20:46)
[2017-07-18] MEDS: SERTRALINE HCL 50 MG TAB PO SCH ×2 (09:57→20:47)
[2017-07-18] MEDS: FUROSEMIDE 20 MG TAB PO SCH (09:57)
[2017-07-18] MEDS: ENOXAPARIN 30 MG/0.3 ML SYR SQ SCH (09:58)
[2017-07-18] MEDS: ASPIRIN 81 MG ECTAB PO SCH (09:58)
[2017-07-18] MEDS: INSULIN ASPART 100 UNITS/ML 3 ML PEN SC SCH ×4 (10:03→20:53)
--- NOTE | 2017-07-18 11:10 | DIAGNOSTIC IMAGING REPORT ---
CHEST 2 VIEWS ROUTINE CLINICAL HISTORY: 71 years-old Female presenting with lobectomy. TECHNIQUE: PA and lateral views of the chest were obtained. COMPARISON: 07/17/2017. FINDINGS: Previously noted large bore left pleural drain remains positioned at the left apex. Median sternotomy wires and mediastinal surgical clips unchanged. Atherosclerosis of aortic arch. Cardiac silhouette normal in size. Coronary stents may be present. Persistent elevation of the left hemidiaphragm with left lung volume loss secondary to left lobectomy. Apparent interval increase in loculated left pleural fluid most notably at the apex. No significant residual pneumothorax. Right lung clear. Trace right pleural effusion may be present. Osseous structures normal. Upper abdomen normal. IMPRESSION: 1. No significant residual pneumothorax is apparent. 2. Slight interval increase in loculated left pleural fluid. 3. Postsurgical changes of the left hemithorax. Electronically signed by: Tobias Ramos M.D. 07/18/2017 11:09 AM Dictated Date/Time: 07/18/2017 11:05 AM
[2017-07-18] MEDS ORDERED: NURSING VERBAL MED ORDER ONE (11:45)
[2017-07-18] MEDS ORDERED: POLYETHYLENE (MIRALAX) 17 GM PACK ONE (12:28)
[2017-07-18] MEDS: POLYETHYLENE (MIRALAX) 17 GM PACK PO SCH ×2 (12:34→20:48)
[2017-07-18] MEDS: ROSUVASTATIN CALCIUM 20 MG TAB PO SCH (20:46)
[2017-07-18] MEDS: METOPROLOL SUCC 50MG EXT REL TAB PO SCH (20:47)
[2017-07-18] MEDS: ISOSORBIDE DINITRATE 10 MG TAB PO SCH (20:48)
[2017-07-19 00:50] VITALS: BP 146/65; PULSE 86; TEMP 36.6; O2SAT 91
[2017-07-19] MEDS: ONDANSETRON INJ 2 MG/ML 2 ML VIAL IV PRN (05:24)
[2017-07-19] MEDS: OXYCODONE HCL IR 5 MG TAB (IMMEDIATE RELEASE) PO PRN ×3 (06:10→20:53)
[2017-07-19 06:11] LABS: EOS % 0.2 %; HEMATOCRIT 22.1 % (37-47); IG% 0.3 %; LYMPH % 5.2 %; LYMPH ABS # 0.49 K/uL (1.2-3.4); MEAN CELL VOLUME 89.5 fL (80-100); MEAN CORPUSCULAR HEMOGLOBIN 29.6 pg (25-34); MEAN PLATELET VOLUME 9.9 fL (7.4-10.4); MONO % 12.7 %; NEUT % 81.6 %; PLATELET COUNT 183 K/uL (130-400); RED BLOOD COUNT 2.47 M/uL (4.2-5.4); WHITE BLOOD COUNT 9.39 K/uL (4.8-10.8)
[2017-07-19 06:55] LABS: BUN/CREATININE RATIO 19.2 (10-20); CALCIUM 8.7 mg/dl (8.5-10.1); CREATININE 1.7 mg/dl (0.60-1.20); POTASSIUM 4.2 mmol/L (3.5-5.1)
[2017-07-19 07:04] LABS: COMPLETE YES; HYPERSEGMENTED POLYS 1+; VACUOLIZATION 1+
[2017-07-19 07:38] VITALS: BP 121/58; PULSE 68; TEMP 37.2; O2SAT 94
[2017-07-19] MEDS: ENOXAPARIN 30 MG/0.3 ML SYR SQ SCH (08:01)
[2017-07-19] MEDS ORDERED: NURSING VERBAL MED ORDER ONE (08:15)
--- NOTE | 2017-07-19 08:15 | Anesthesiology Progress Note ---
Anesthesia Post Op Note Date & Time Jul 19, 2017 at 08:15 Vital Signs Vital Signs Past 12 Hours Date Time Temp Pulse Resp B/P (MAP) Pulse Ox O2 Delivery O2 Flow Rate FiO2 07/19/17 07:38 37.2 68 16 121/58 (79) 94 Nasal Cannula 2.0 07/19/17 00:50 36.6 86 16 146/65 (92) 91 Nasal Cannula 2.0 07/19/17 00:03 Nasal Cannula 2.0 07/18/17 23:15 36.7 75 16 147/68 (94) 94 Nasal Cannula 2.0 07/18/17 20:45 72 133/65 (87) Notes Mental Status: alert / awake / arousable, participated in evaluation Pt Amnestic to Procedure: Yes Nausea / Vomiting: adequately controlled Pain: adequately controlled Airway Patency, RR, SpO2: stable & adequate BP & HR: stable & adequate Hydration State: stable & adequate Anesthetic Complications: no major complications apparent
[2017-07-19] MEDS ORDERED: FUROSEMIDE INJ 20 MG in SYRINGE 0 ML IV SCH (08:30)
--- NOTE | 2017-07-19 08:37 | DIAGNOSTIC IMAGING REPORT ---
CHEST ONE VIEW PORTABLE CLINICAL HISTORY: chest tube removal COMPARISON STUDY: 07/18/2017 FINDINGS: The left-sided chest tube has been removed. There is no pneumothorax. There is persistent left-sided volume loss. There are postsurgical changes of a midline sternotomy. There is persistent left-sided pleural thickening/fluid. Increased density within the left paramediastinal region superior to the aortic knob persists. There are increased left lung interstitial markings. The right lung remains clear. IMPRESSION: No evidence of pneumothorax status post removal of the left-sided chest tube Electronically signed by: Chris Galvez M.D. 07/19/2017 8:35 AM Dictated Date/Time: 07/19/2017 8:34 AM
[2017-07-19] MEDS: DOCUSATE SODIUM 100 MG CAP PO SCH ×2 (08:53→20:53)
[2017-07-19] MEDS: TIOTROPIUM BROMIDE-OLODATEROL 2.5-2.5MCG/ACT INH SCH (08:53)
[2017-07-19] MEDS: AMLODIPINE BESYLATE 5 MG TAB PO SCH (08:54)
[2017-07-19] MEDS: FUROSEMIDE 20 MG TAB PO SCH (08:54)
[2017-07-19] MEDS: ASPIRIN 81 MG ECTAB PO SCH (08:54)
[2017-07-19] MEDS: SERTRALINE HCL 50 MG TAB PO SCH ×2 (08:55→20:55)
[2017-07-19] MEDS: POLYETHYLENE (MIRALAX) 17 GM PACK PO SCH ×2 (08:55→20:53)
[2017-07-19] MEDS ORDERED: TRAM-10 PO (09:06)
[2017-07-19] MEDS: INSULIN ASPART 100 UNITS/ML 3 ML PEN SC SCH ×4 (09:06→21:01)
[2017-07-19] MEDS ORDERED: CLC100 PO (09:06)
--- NOTE | 2017-07-19 09:09 | Discharge Instructions ---
Discharge Instructions Date of Service Jul 19, 2017. Admission Reason for Admission: Lung Cancer Discharge Discharge Diagnosis / Problem: Lung Cancer Discharge Goals Goal(s): Learn about illness Activity Recommendations Activity Limitations: as noted below Lifting Limitations: none 1. Do not drive until cleared to do so by Dr. Christine. 2. You may remove dressings and shower upon your return home. No tub baths. 3. Do not fly in airplane until cleared to do so by Dr. Christine. 4. Continue to use your oxygen as directed. This will be assessed at your follow-up appointments and determined if it can be stopped at that time. . Instructions / Follow-Up Instructions / Follow-Up 1. Office appointment with Dr. Christine on , July 22, 2017. Office will call yo with date and time of appointment. Go to hospital 1 hour before appointment to have blood work and chest x-ray done. Current Hospital Diet Patient's current hospital diet: Diabetes Type 2 Diet Discharge Diet Recommended Diet: Diabetes Type 2 Diet Procedures Procedures Performed: Video Mediastinoscopy with Lymph Node Biopsies; Left Video-Assisted Thoracoscopy with Left Upper Lobectomy and Lymphadenectomy Pending Studies Studies pending at discharge: no Medical Emergencies . Who to Call and When: Medical Emergencies: If at any time you feel your situation is an emergency, please call 911 immediately. . Non-Emergent Contact Non-Emergency issues call your: Surgeon Call Non-Emergent contact if: you have a fever, your pain is not controlled, wound has increased drainage . "Provider Documentation" section prepared by Tom Trammell. . VTE Core Measure Inpt VTE Proph given/why not?: Enoxaparin (Lovenox)SQ, SCD's
--- NOTE | 2017-07-19 09:13 | Clinical Documentation Query ---
CLINICAL DOCUMENTATION QUERY Query #1/2 In your clinical opinion is this patient being managed for: ( ) Expected acute blood loss anemia ( ) Not Agree ( ) Other explanation of clinical findings (Please Explain) ( ) Unable to determine (Please Define) (X ) Need to Discuss The medical record reflects the following clinical findings, treatment, and risk factors. Clinical Indicators: H/H has fallen to 7.3/22.1. I/O showe 590ml out Chest tube since Sx, EBL documented as 200. Treatment: Holding of Lovenox, IVF's during procedure. Daily CBC's Risk Factors: Age, surgery, anticoagulation. Query #2/2 In your clinical opinion is this patient being managed for: ( ) CKD stage III ( ) Not Agree (X) Other explanation of clinical findings (Please Explain) ( ) Unable to determine (Please Define) ( ) Need to Discuss The medical record reflects the following clinical findings, treatment, and risk factors. Clinical Indicators: most recent PRP shows BUN 33, Creatinine 1.70, GFR 30.0 Treatment: daily monitoring of PRP's Risk Factors: Age Please clarify and document your clinical opinion in the progress notes and discharge summary. Terms such as "probable", "suspected", "likely", "questionable", "possible", or "still to be ruled out" are acceptable. IF IN AGREEMENT, YOU MUST DOCUMENT ABOVE DIAGNOSTIC STATEMENT IN DAILY PROGRESS NOTES AND DISCHARGE SUMMARY. This document is not part of the patient's record. Chronic Kidney Disease (CKD), stages 1-5. Documenting the stage of CKD will improve data integrity and will help clarify vague terms such as "renal insufficiency" or "chronic renal failure." The stages of CKD according to the [employer] are as follows: Stage I: GFR >90 Stage II: GFR 60-89 Stage III: GFR 30-59 Stage IV: GFR 15-29 Stage V: GFR <15 Thank You, Panfilo Cho RN [phone]
--- NOTE | 2017-07-19 16:12 | SURGERY PROGRESS NOTE ---
DATE: 07/19/2017 SUBJECTIVE: Ms. Collado was seen today. We removed her chest tube as she drained very little and had no air leak. She is eating. She is ambulating in the hallway. She is still requiring oxygen. We weaned her down to 2 liters, but she is still requiring it. Her blood pressure and vital signs have been stable. She is making urine. She has voided, but also has at least 750 mL yesterday. She is moving air, although a bit decreased on the left side. All of her incisions are clean. She has a regular rate and rhythm of her heart. She has no peripheral edema. Has her sequential compression devices in place. Her white count is 9390. Her hemoglobin is down to 7.3, which is surprising. We really did not lose much blood during the case. She put out a lot the first 24 hours, but we left a few 100 mL of irrigation in her chest. Hemoglobin was 13.0 before the surgery and 7.3 now. Platelet count has been relatively stable at 183,000. I was concerned about her creatinine as it had bumped up to 2.7 after she received contrast for her cardiac catheterization before surgery. She was 1.8 on arrival and is 1.7 today. In addition, her sodium is down to 131. Her weight is also up a bit. I am going to gently diurese her with a bit more today of Lasix. Her chest x-ray after we removed the chest tube shows fairly good aeration. She has a small effusion on the left. She has no pneumothorax, no infiltrates. ASSESSMENT AND PLAN: Postoperative day #3 status post thoracoscopic left upper lobectomy. Pathology is still pending. I want to keep her 1 more day though. She lives in [place] which is fairly distant and I want to check a chest x-ray and labs on her in the morning. I am going to hold her Lovenox. She is ambulating, we are using sequential compression devices. I had a long talk with patient, her and her daughter about deep vein thromboses, pulmonary emboli and pneumonias. They understand. Her respiratory effort actually is very good. We talked about going home today, but I would feel better if we kept her. FIDELINA
[2017-07-19 20:51] VITALS: BP 156/64; PULSE 81; TEMP 36.3; O2SAT 95
[2017-07-19] MEDS: ISOSORBIDE DINITRATE 10 MG TAB PO SCH (20:54)
[2017-07-19] MEDS: METOPROLOL SUCC 50MG EXT REL TAB PO SCH (20:54)
[2017-07-19] MEDS: ROSUVASTATIN CALCIUM 20 MG TAB PO SCH (20:54)
[2017-07-19 23:36] VITALS: BP 150/65; PULSE 81; TEMP 36.9; O2SAT 93
[2017-07-20] VITALS (16 sets, daily range): BP systolic 104–154; BP diastolic 53–90; PULSE 82–130; TEMP 36.6–37.2; O2SAT 91–95
[2017-07-20] MEDS: OXYCODONE HCL IR 5 MG TAB (IMMEDIATE RELEASE) PO PRN ×3 (05:12→19:42)
[2017-07-20 05:57] LABS: HEMATOCRIT 20.9 % (37-47); MEAN CELL VOLUME 88.9 fL (80-100); MEAN CORPUSCULAR HEMOGLOBIN 29.4 pg (25-34); MEAN PLATELET VOLUME 9.9 fL (7.4-10.4); PLATELET COUNT 207 K/uL (130-400); RED BLOOD COUNT 2.35 M/uL (4.2-5.4); WHITE BLOOD COUNT 9.38 K/uL (4.8-10.8)
[2017-07-20 06:14] LABS: ANISOCYTOSIS PRESENT; BASO % 0.1 %; BASO ABS # 0.01 K/uL (0-0.2); COMPLETE YES; EOS % 0.4 %; IG% 0.2 %; LYMPH % 5.3 %; MONO % 10.8 %; NEUT % 83.2 %
--- NOTE | 2017-07-20 08:30 | DIAGNOSTIC IMAGING REPORT ---
CHEST ONE VIEW PORTABLE CLINICAL HISTORY: 71 years-old Female presenting with s/p lung resection . TECHNIQUE: Portable upright AP view of the chest was obtained. COMPARISON: 07/19/2017. FINDINGS: Median sternotomy wires with breakage again noted. Atherosclerosis of the arch. Cardiac silhouette normal in size. Surgical clips project over left hilum. Diffuse hazy left lung opacity unchanged. Stable size of the loculated left pleural effusion. Osseous structures normal. Resolution clip projects over the epigastrium. IMPRESSION: 1. Unchanged left lung opacity and loculated pleural effusion. No pneumothorax. Electronically signed by: Tobias Ramos M.D. 07/20/2017 8:29 AM Dictated Date/Time: 07/20/2017 8:20 AM
[2017-07-20] MEDS ORDERED: AMIODARONE IV BOLUS / DRIP IV STA (08:37)
[2017-07-20] MEDS: POLYETHYLENE (MIRALAX) 17 GM PACK PO SCH ×2 (08:48→21:39)
[2017-07-20] MEDS: ASPIRIN 81 MG ECTAB PO SCH (08:49)
[2017-07-20] MEDS: DOCUSATE SODIUM 100 MG CAP PO SCH ×2 (08:50→21:44)
[2017-07-20] MEDS: FUROSEMIDE 20 MG TAB PO SCH (08:50)
[2017-07-20] MEDS: AMLODIPINE BESYLATE 5 MG TAB PO SCH (08:50)
[2017-07-20] MEDS: ENOXAPARIN 30 MG/0.3 ML SYR SQ SCH (08:51)
[2017-07-20] MEDS: SERTRALINE HCL 50 MG TAB PO SCH ×2 (08:51→21:43)
[2017-07-20] MEDS: TIOTROPIUM BROMIDE-OLODATEROL 2.5-2.5MCG/ACT INH SCH (08:52)
[2017-07-20] MEDS: INSULIN ASPART 100 UNITS/ML 3 ML PEN SC SCH ×4 (08:58→21:46)
[2017-07-20] MEDS ORDERED: AMIODARONE / D5W 200 ML IV SCH (09:15)
[2017-07-20] MEDS ORDERED: AMIODARONE / D5W 100 ML IV ONE (09:15)
[2017-07-20 09:59] LABS: BUN/CREATININE RATIO 20.1 (10-20); CALCIUM 8.7 mg/dl (8.5-10.1); CREATININE 1.7 mg/dl (0.60-1.20); MAGNESIUM 2.4 mg/dl (1.8-2.4); POTASSIUM 3.9 mmol/L (3.5-5.1)
--- NOTE | 2017-07-20 10:45 | Cardiology Consultation ---
Cardiology Consultation Date of Consultation: Jul 20, 2017. Requesting Physician: Dr. Christine Reason for Consultation: Atrial fibrillation with rapid ventricular response Pt evaluation today including: conversation w/ patient, conversation w/ family , physical exam, lab review, review of studies, review of inpatient medication list, conversation w/ attending History of Present Illness This is a very pleasant 71-year-old woman who has a history of bypass surgery in 2005 (JEWELL to the LAD, vein graft to obtuse marginal). She had early graft failure and required stents to the vein graft and to the distal JEWELL in April 2006. 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 She has moderate mitral regurgitation (including a DORETHA on November 2016). 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 She also had carotid endarterectomy in February 2016. She is reported to have chronic angina (although she tells me she does not get chest discomfort). She had a nuclear stress test 07/01/2017 which was negative for ischemia. All of this took place through [facility] ([facility]). 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 She had been doing well postoperatively but was noted this morning to have a rapid heart rate (she is unaware of it) and also was noted to be significantly anemic. She was therefore transferred down to telemetry, she just arrived 1 I evaluated her. She has just been started on amiodarone. At the time of evaluation she was comfortable in bed, she denied symptoms of palpitations, shortness of breath or chest discomfort. She does not recall having chest discomfort in the past and does not recall being told she had any type of arrhythmia. She tells me that her anginal symptoms or shortness of breath, she doesn't recall having chest discomfort even before her bypass surgery. Past Medical/Surgical History (1) Lung cancer Coronary artery disease Renal arterial disease Carotid disease Social History Smoking Status: Former Smoker History of Alcohol Use: No Review of Systems Constitutional: No fever, No weight loss, No weakness Respiratory: No cough, No wheezing, No shortness of breath, No dyspnea on exertion Cardiac: No chest pain, No orthopnea, No PND, No edema, No palpitations Abdomen: No pain, No nausea, No vomiting, No diarrhea, No GI bleeding Female : No problem reported Neurologic: No paralysis, No weakness, No numbness/tingling, No balance problems Heme: No abnormal bleeding/bruising, No clotting problems Endo: No fatigue Skin: No problem reported All Other Systems: Reviewed and Negative Allergies Coded Allergies: No Known Allergies (Unverified , 07/16/17) Medications Current Inpatient Medications Medications (Trade) Dose Ordered Sig/Josep Route Start Time Stop Time Status Last Admin Dose Admin Amlodipine Besylate (Norvasc Tab) 10 mg QAM PO 07/17/17 09:00 08/16/17 08:59 07/20/17 08:50 10 MG Aspirin (Ecotrin Tab) 81 mg QAM PO 07/17/17 09:00 08/16/17 08:59 07/20/17 08:49 81 MG Metoprolol Succinate (Toprol Xl Tab) 50 mg HS PO 07/16/17 21:00 08/15/17 20:59 07/19/17 20:54 50 MG Nitroglycerin (Nitrostat Tab) 0.4 mg UD SL 07/16/17 18:15 08/15/17 18:14 Rosuvastatin Calcium (Crestor Tab) 40 mg HS PO 07/16/17 21:00 08/15/17 20:59 07/19/17 20:54 40 MG Sertraline HCl (Zoloft Tab) 25 mg HS PO 07/16/17 21:00 08/15/17 20:59 07/19/17 20:55 25 MG Sertraline HCl (Zoloft Tab) 50 mg QAM PO 07/17/17 09:00 08/16/17 08:59 07/20/17 08:51 50 MG Isosorbide Dinitrate (Isordil Tab) 30 mg HS PO 07/16/17 21:00 08/15/17 20:59 07/19/17 20:54 30 MG Oxycodone HCl (Roxicodone Immediate Rel Tab) 5 mg Q6H PRN PO 07/16/17 18:15 07/30/17 18:14 07/20/17 05:12 5 MG Enoxaparin Sodium (Lovenox Inj) 30 mg DAILY SQ 07/17/17 09:00 08/16/17 08:59 07/20/17 08:51 30 MG Ondansetron HCl (Zofran Inj) 4 mg Q4H PRN IV 07/16/17 18:15 08/15/17 18:14 07/19/17 05:24 4 MG Docusate Sodium (coLACE CAP) 100 mg BID PO 07/16/17 21:00 08/15/17 20:59 07/20/17 08:50 100 MG Morphine Sulfate (MoRPHine SULFATE INJ) Q1H PRN IV 07/16/17 18:15 07/30/17 18:14 07/18/17 20:59 1 MG Insulin Aspart (novoLOG ASPART) SLIDING SCALE G... ACHS SC 07/16/17 21:00 08/15/17 20:59 07/20/17 08:58 5 UNITS Furosemide (Lasix Tab) 20 mg QAM PO 07/17/17 11:00 08/16/17 10:59 07/20/17 08:50 20 MG Tiotropium [place]/Olodaterol (Stiolto Respimat 2.5-2.5 Mcg/Act) 5 mcg DAILY INH 07/18/17 09:00 08/17/17 08:59 07/20/17 08:52 5 MCG Polyethylene (Miralax Powder Packet) 17 gm BID PO 07/18/17 12:00 08/17/17 11:59 07/20/17 08:48 17 GM Amiodarone HCL/ Dextrose 200 ml @ 33.3 mls/hr Q6H1M IV 07/20/17 09:15 07/20/17 15:15 07/20/17 10:25 33.3 MLS/HR Amiodarone HCL/ Dextrose 200 ml @ 16.7 mls/hr [id number] IV 07/20/17 15:15 08/19/17 15:14 Physical Exam Vital Signs Past 12 Hours Date Time Temp Pulse Resp B/P (MAP) Pulse Ox O2 Delivery O2 Flow Rate FiO2 07/20/17 10:22 113 111/63 (79) 91 Nasal Cannula 2.0 07/20/17 10:00 37.2 122 14 126/67 (86) 92 Nasal Cannula 2.0 07/20/17 09:38 36.6 116 17 92 2.0 07/20/17 08:33 Nasal Cannula 2.0 07/20/17 07:21 36.6 116 17 124/70 (88) 92 Room Air 07/20/17 00:11 36.7 82 16 154/68 (96) 92 Nasal Cannula 2.0 07/19/17 23:38 Room Air 07/19/17 23:36 36.9 81 14 150/65 (93) 93 Nasal Cannula 2.0 Constitutional: Level of Distress: mild distress Psychiatric: Mental Status: active & alert Head: normocephalic Eyes: EOM: EOMI ENMT: normal ENT inspection, hearing grossly normal Neck: supple, no masses Lungs: Respiratory effort: no dyspnea, good air movement Auscultation: no wheezing, decreased breath sounds (on the left) Cardiovascular: Heart Auscultation: no rubs, no gallops, tachycardia, II/ WSM, irregular rate rhythm Peripheral Pulses: Bruits: none appreciated Abdomen: Bowel Sounds: normal Inspection & Palpation: soft, no tenderness, guarding & rebound, no masses Musculoskeletal: normal strength (5/5 throughout) Extremities: no edema Neurologic: Cranial Nerves: grossly intact Sensation: grossly intact Data Laboratory Results: Last 24 Hours Test 07/19/17 11:51 07/19/17 12:04 07/19/17 16:51 07/19/17 20:43 Hepatitis C Antibody Screen NEG Bedside Glucose 174 mg/dl 238 mg/dl 226 mg/dl Test 07/20/17 05:33 07/20/17 07:46 White Blood Count 9.38 K/uL Red Blood Count 2.35 M/uL Hemoglobin 6.9 g/dL Hematocrit 20.9 % Mean Corpuscular Volume 88.9 fL Mean Corpuscular Hemoglobin 29.4 pg Mean Corpuscular Hemoglobin Concent 33.0 g/dl Platelet Count 207 K/uL Mean Platelet Volume 9.9 fL Neutrophils (%) (Auto) 83.2 % Lymphocytes (%) (Auto) 5.3 % Monocytes (%) (Auto) 10.8 % Eosinophils (%) (Auto) 0.4 % Basophils (%) (Auto) 0.1 % Neutrophils # (Auto) 7.80 K/uL Lymphocytes # (Auto) 0.50 K/uL Monocytes # (Auto) 1.01 K/uL Eosinophils # (Auto) 0.04 K/uL Basophils # (Auto) 0.01 K/uL RDW Standard Deviation 48.0 fL RDW Coefficient of Variation 14.8 % Immature Granulocyte % (Auto) 0.2 % Immature Granulocyte # (Auto) 0.02 K/uL Anisocytosis PRESENT Sodium Level 129 mmol/L Potassium Level 3.9 mmol/L Chloride Level 97 mmol/L Carbon Dioxide Level 23 mmol/L Anion Gap 9.0 mmol/L Blood Urea Nitrogen 34 mg/dl Creatinine 1.70 mg/dl Est Creatinine Clear Calc Drug Dose 29.7 ml/min Estimated GFR () 34.8 Estimated GFR (Non- 30.0 BUN/Creatinine Ratio 20.1 Random Glucose 220 mg/dl Calcium Level 8.7 mg/dl Magnesium Level 2.4 mg/dl Bedside Glucose 224 mg/dl Imaging: Chest x-ray shows volume loss on the left with a left pleural effusion EKG: Atrial fibrillation with a rapid ventricular response of 124 bpm, PVCs versus aberrantly conducted complexes Telemetry reviewed: She was just placed on telemetry, this shows atrial fibrillation with a heart rate of about 120 bpm. Assessment & Plan #1. Atrial fibrillation: She had acute onset of atrial fibrillation this morning based on vital signs (she is asymptomatic therefore she can't tell me when it started). It is possible this is an acute event related to the surgery, but it is also possible that she has paroxysmal atrial fibrillation and we just happened to have her on a monitor when she went into it. Since she is asymptomatic even on close questioning here in the hospital during the arrhythmia it is certainly conceivable that she has had it in the past and not been aware of it. We may have to take that into account regarding future therapy with anticoagulation or antiarrhythmics. I agree with the use of intravenous amiodarone. She has the appearance of jaundice, with the amiodarone and I'm going to get liver function tests to make sure we know what her baseline function is. #2. Acute blood loss: She is quite anemic due to an acute blood loss, most likely surgical, and although there is no evidence of ongoing bleeding it is a concern. I agree that we should hold off on anticoagulation for now, it seems that she went into atrial fibrillation this morning so that gives us some time to try to get her back into normal rhythm before we have to be concerned about an anticoagulant. #3. Coronary artery disease: She has well known coronary artery disease, but no evidence of ischemia on stress testing several weeks ago. She doesn't have symptoms of chest discomfort during this arrhythmia, although evidently she does not have chest discomfort although she may have dyspnea on exertion as an anginal equivalent. Her electrocardiogram suggests ischemia but may also be secondary to rapid heart rates. Thank you for allowing me to participate in her care.
[2017-07-20] MEDS ORDERED: FUROSEMIDE INJ 20 MG in SYRINGE 0 ML IV SCH ×2 (11:45→14:00)
[2017-07-20 12:24] LABS: THYROID STIMULATING HORMONE 0.295 uIu/ml (0.300-4.500)
--- NOTE | 2017-07-20 14:59 | SURGERY PROGRESS NOTE ---
DATE: 07/20/2017 DATE: 07/20/2017 SUBJECTIVE: Narcisa Collado is now 4 days status post a thoracoscopic left upper lobectomy with dissection of her left internal mammary artery pedicle graft out from the left upper lobe. She states that she feels "much better" since her chest tube was removed. She is still on 2 liters of O2 with saturations between 93-95%. Unfortunately, her pulse became a bit erratic this morning in the 1-teens to 120s and she is in atrial fibrillation. In addition, her hemoglobin is 6.9, which surprised me a bit. Also, her sodium is low which also is surprising. Really did not lose that much blood at the time of surgery and does not appear her x-ray has changed much. She was only 7.3 yesterday. At this point, I am going to go ahead and give her 2 units of packed cells and will diurese her. I have discussed this case with Dr. Pulido. I am going to move her down to telemetry. ASSESSMENT AND PLAN: 1. Postoperative day 4 status post thoracoscopic left upper lobectomy and video mediastinoscopy for nonsmall cell lung carcinoma. 2. Atrial fibrillation. 3. Anemia of blood loss. PLAN: We are going to transfuse the patient 2 units of packed cells. I am also going to gently diurese her. In addition, we are going to move her down to telemetry and have Dr. Chivo Pulido evaluate her from a cardiology standpoint.
[2017-07-20] MEDS: AMIODARONE / D5W 200 ML IV SCH (16:46)
[2017-07-20] MEDS: ISOSORBIDE DINITRATE 10 MG TAB PO SCH (21:41)
[2017-07-20] MEDS: ROSUVASTATIN CALCIUM 20 MG TAB PO SCH (21:42)
[2017-07-20] MEDS: METOPROLOL SUCC 50MG EXT REL TAB PO SCH (21:44)
[2017-07-21] VITALS (10 sets, daily range): BP systolic 116–150; BP diastolic 62–84; PULSE 94–117; TEMP 36.7–37.2; O2SAT 91–99
[2017-07-21] MEDS: AMIODARONE / D5W 200 ML IV SCH ×2 (03:37→13:39)
[2017-07-21] MEDS: OXYCODONE HCL IR 5 MG TAB (IMMEDIATE RELEASE) PO PRN ×3 (05:08→19:53)
[2017-07-21 07:19] LABS: BASO % 0.1 %; BASO ABS # 0.01 K/uL (0-0.2); COMPLETE YES; HEMATOCRIT 29.3 % (37-47); IG% 0.3 %; LYMPH % 8.2 %; LYMPH ABS # 0.64 K/uL (1.2-3.4); MEAN CELL VOLUME 84.9 fL (80-100); MEAN CORPUSCULAR HEMOGLOBIN 27.5 pg (25-34); MEAN CORPUSCULAR HGB CONC 32.4 g/dl (32-36); MEAN PLATELET VOLUME 9.8 fL (7.4-10.4); MONO % 12.2 %; NEUT % 77.2 %; PLATELET COUNT 243 K/uL (130-400); RED BLOOD COUNT 3.45 M/uL (4.2-5.4); WHITE BLOOD COUNT 7.84 K/uL (4.8-10.8)
--- NOTE | 2017-07-21 07:24 | DIAGNOSTIC IMAGING REPORT ---
CHEST ONE VIEW PORTABLE HISTORY: Follow-up effusion COMPARISON: Chest 07/20/2017. FINDINGS: The heart remains mildly enlarged. Postoperative changes. Small left pleural effusion persists. This appears to be partially loculated. The right lung is essentially clear. No pneumothorax. Hazy appearance the left lung is also unchanged. Left paramediastinal opacity persists. IMPRESSION: No change compared to the prior study. Partially loculated left pleural effusion and left paramediastinal opacity persists. No pneumothorax. Electronically signed by: Benjamin Buchanan M.D. 07/21/2017 7:23 AM Dictated Date/Time: 07/21/2017 7:20 AM
[2017-07-21 07:57] LABS: BLOOD UREA NITROGEN 26 mg/dl (7-18); CALCIUM 9.1 mg/dl (8.5-10.1); CARBON DIOXIDE 32 mmol/L (21-32); CHLORIDE 95 mmol/L (98-107); GLUCOSE 192 mg/dl (70-99); POTASSIUM 3.8 mmol/L (3.5-5.1); SODIUM 132 mmol/L (136-145)
[2017-07-21] MEDS: DOCUSATE SODIUM 100 MG CAP PO SCH ×2 (07:57→20:44)
[2017-07-21] MEDS: ASPIRIN 81 MG ECTAB PO SCH (07:58)
[2017-07-21] MEDS: SERTRALINE HCL 50 MG TAB PO SCH ×2 (07:58→20:46)
[2017-07-21] MEDS: FUROSEMIDE 20 MG TAB PO SCH (07:59)
[2017-07-21] MEDS: TIOTROPIUM BROMIDE-OLODATEROL 2.5-2.5MCG/ACT INH SCH (07:59)
[2017-07-21] MEDS: ENOXAPARIN 30 MG/0.3 ML SYR SQ SCH (08:00)
[2017-07-21] MEDS: INSULIN ASPART 100 UNITS/ML 3 ML PEN SC SCH ×4 (08:03→20:49)
[2017-07-21] MEDS ORDERED: METOPROLOL SUCC 50MG EXT REL TAB PO STA (09:16)
[2017-07-21] MEDS: AMLODIPINE BESYLATE 5 MG TAB PO SCH (09:16)
--- NOTE | 2017-07-21 09:29 | Cardiology Follow-Up ---
Subjective Date of Service: Jul 21, 2017. Pt evaluation today including: conversation w/ patient, conversation w/ family , physical exam, lab review, review of studies, review of inpatient medication list History of Present Illness This is a very pleasant 71-year-old woman who has a history of bypass surgery in 2005 (JEWELL to the LAD, vein graft to obtuse marginal). She had early graft failure and required stents to the vein graft and to the distal JEWELL in April 2006. 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 She has moderate mitral regurgitation (including a DORETHA on November 2016). 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 She also had carotid endarterectomy in February 2016. She is reported to have chronic angina (although she tells me she does not get chest discomfort). She had a nuclear stress test 07/01/2017 which was negative for ischemia. All of this took place through [facility] ([place] [facility] [place]). 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 She had been doing well postoperatively but was noted this morning to have a rapid heart rate (she is unaware of it) and also was noted to be significantly anemic. She was therefore transferred down to telemetry, she just arrived 1 I evaluated her. She has just been started on amiodarone. She is currently feeling well, she has no palpitations (although remains in atrial fibrillation). She has no chest discomfort or shortness of breath. She does not seem to side effects from the amiodarone. Social History Smoking Status: Former Smoker History of Alcohol Use: No Review of Systems Respiratory: No cough, No wheezing, No shortness of breath, No dyspnea on exertion Cardiac: No chest pain, No orthopnea, No PND, No edema, No palpitations Medications Cardiovascular: Item Value Date Time Amiodarone HCL/ 200 ml @ 16.7 mls/hr 07/20/17 1515 Dextrose .[id number] 07/21/17 0337 Amlodipine 10 mg 07/17/17 0900 Besylate QAM/PO 07/20/17 0850 (Norvasc Tab) Furosemide 20 mg 07/17/17 1100 (Lasix Tab) QAM/PO 07/21/17 0759 Aspirin 81 mg 07/17/17 0900 (Ecotrin Tab) QAM/PO 07/21/17 0758 Enoxaparin Sodium 30 mg 07/17/17 0900 (Lovenox Inj) DAILY/SQ 07/21/17 0800 Metoprolol 50 mg 07/16/17 2100 Succinate HS/PO 07/20/17 214 (Toprol Xl Tab) Rosuvastatin 40 mg 07/16/17 2100 Calcium HS/PO 07/20/17 214 (Crestor Tab) Isosorbide 30 mg 07/16/17 2100 Dinitrate HS/PO 07/20/17 214 (Isordil Tab) Objective Vital Signs Past 12 Hours Date Time Temp Pulse Resp B/P (MAP) Pulse Ox O2 Delivery O2 Flow Rate FiO2 07/21/17 08:10 95 Nasal Cannula 2.0 07/21/17 07:27 36.7 117 18 150/77 (101) 95 Nasal Cannula 2.0 07/21/17 04:02 Nasal Cannula 2.0 07/21/17 03:43 96 07/21/17 02:40 36.8 112 18 147/84 (105) 99 Nasal Cannula 2.0 07/21/17 02:31 107 07/21/17 01:42 110 07/21/17 00:00 Nasal Cannula 2.0 07/20/17 23:30 36.8 114 18 134/82 (99) 95 Nasal Cannula 2.0 Last Recorded Weight-Kilograms: 74.000 Physical Exam Constitutional: Level of Distress: mild distress Lungs: Respiratory effort: no dyspnea, good air movement Auscultation: no wheezing, decreased breath sounds (on the left) Cardiovascular: Heart Auscultation: no rubs, no gallops, tachycardia, II/ WSM, irregular rate rhythm Peripheral Pulses: Bruits: none appreciated Extremities: no edema Data Laboratory Results: Last 24 Hours Test 07/20/17 11:39 07/20/17 11:54 07/20/17 16:29 07/20/17 20:51 Total Bilirubin 0.4 mg/dl Direct Bilirubin 0.2 mg/dl Aspartate Amino Transf (AST/SGOT) 15 U/L Alanine Aminotransferase (ALT/SGPT) 9 U/L Alkaline Phosphatase 52 U/L Troponin I < 0.015 ng/ml < 0.015 ng/ml Total Protein 6.6 gm/dl Albumin 2.4 gm/dl Thyroid Stimulating Hormone (TSH) 0.295 uIu/ml Bedside Glucose 227 mg/dl 210 mg/dl Test 07/20/17 20:55 07/21/17 06:51 Bedside Glucose 213 mg/dl White Blood Count 7.84 K/uL Red Blood Count 3.45 M/uL Hemoglobin 9.5 g/dL Hematocrit 29.3 % Mean Corpuscular Volume 84.9 fL Mean Corpuscular Hemoglobin 27.5 pg Mean Corpuscular Hemoglobin Concent 32.4 g/dl Platelet Count 243 K/uL Mean Platelet Volume 9.8 fL Neutrophils (%) (Auto) 77.2 % Lymphocytes (%) (Auto) 8.2 % Monocytes (%) (Auto) 12.2 % Eosinophils (%) (Auto) 2.0 % Basophils (%) (Auto) 0.1 % Neutrophils # (Auto) 6.05 K/uL Lymphocytes # (Auto) 0.64 K/uL Monocytes # (Auto) 0.96 K/uL Eosinophils # (Auto) 0.16 K/uL Basophils # (Auto) 0.01 K/uL RDW Standard Deviation 54.5 fL RDW Coefficient of Variation 17.5 % Immature Granulocyte % (Auto) 0.3 % Immature Granulocyte # (Auto) 0.02 K/uL Nucleated RBC Absolute Count (auto) 0.02 K/uL Nucleated Red Blood Cells % 0.3 % Sodium Level 132 mmol/L Potassium Level 3.8 mmol/L Chloride Level 95 mmol/L Carbon Dioxide Level 32 mmol/L Anion Gap 5.0 mmol/L Blood Urea Nitrogen 26 mg/dl Creatinine 1.50 mg/dl Est Creatinine Clear Calc Drug Dose 33.6 ml/min Estimated GFR () 40.5 Estimated GFR (Non- 34.9 BUN/Creatinine Ratio 17.0 Random Glucose 192 mg/dl Calcium Level 9.1 mg/dl Troponin I < 0.015 ng/ml Telemetry reviewed: Atrial fibrillation continues, heart rate averaging around 110 bpm and this is a little bit better on amiodarone. Assessment and Plan #1. Atrial fibrillation: She has been in atrial fibrillation for around 24 hours now, which increases her risk of stroke. Her heart rate is also a little bit fast on her current medical regimen including amiodarone. Although amiodarone may continue to accumulate and control heart rate I think we should increase her beta blockade and I will do that today. She takes metoprolol succinate 50 mg at bedtime and I will increase that to 50 mg twice a day. I will discuss anticoagulation with thoracic surgery. #2. Acute blood loss: Her hemoglobin came up nicely following transfusion, this would be consistent with no active bleeding. #3. Coronary artery disease: She has well known coronary artery disease, but no evidence of ischemia on stress testing several weeks ago. She doesn't have symptoms of chest discomfort during this arrhythmia, although evidently she does not have chest discomfort although she may have dyspnea on exertion as an anginal equivalent. Her electrocardiogram suggests ischemia but may also be secondary to rapid heart rates. Her troponin measurements have been negative. Thank you for allowing me to participate in her care.
[2017-07-21] MEDS: POLYETHYLENE (MIRALAX) 17 GM PACK PO SCH ×2 (09:56→19:54)
--- NOTE | 2017-07-21 10:54 | DIAGNOSTIC IMAGING REPORT ---
CT SCAN OF THE CHEST WITHOUT IV CONTRAST CLINICAL HISTORY: Pleural effusion. Lung cancer. COMPARISON STUDY: Chest x-ray dated 07/21/2017. Chest CT dated 04/26/2017. PET/CT dated 05/27/2017. TECHNIQUE: CT scan of the thorax was performed from the thoracic inlet to the upper abdomen. Images are reviewed in the axial, sagittal, and coronal planes. IV contrast was not administered for this examination as per the referring clinician. Note that the examination was performed in suboptimal fashion without IV contrast. The examination is also degraded by motion artifact. A dose lowering technique was utilized adhering to the principles of ALARA. CT DOSE: 315.47 mGycm FINDINGS: Thyroid: Imaged portions of the thyroid gland are normal in size and attenuation. Thoracic aorta: There is advanced atherosclerotic calcification of the thoracic aorta, which is normal in caliber and demonstrates standard 3-vessel arch anatomy. Heart: The patient is status post midline sternotomy. The heart is enlarged and without pericardial effusion. The coronary arteries are densely calcified. The pulmonary trunk is dilated, measuring 3.5 cm in transverse diameter. This suggests pulmonary artery hypertension. Lungs and pleural spaces: Evaluation of the lung parenchyma is degraded by motion artifact. Advanced emphysema is identified. There is trace right pleural effusion. The right lung is otherwise clear. Layering secretions are noted in the trachea. There are postoperative changes consistent with left upper lobe resection. A small to moderate pleural effusion is present at the left lung base. This appears at least partially loculated and contains foci of gas and internal complexity. There is also loculated pleural fluid at the left apex. A hyperdense pocket of fluid in the left pleural space along the superior mediastinal border as seen on image #74 measures approximately 6 x 8 x 4 cm. The density of this collection suggests hematoma. There are numerous small bubbles of pleural gas identified at the left apex. Intralobular thickening is noted in the left lower lung. Mediastinum: The mediastinum is not well assessed without IV contrast. There is a pocket of gas and fluid within the pretracheal mediastinum seen on image #95. This measures approximately 2 x 2 cm. Fluid is also seen within the AP window. Prominent prevascular nodes measure up to 8 mm in short axis. Christal: Not well assessed without IV contrast. Axillae: There is no axillary lymphadenopathy. Upper abdomen: There is markedly asymmetric cortical atrophy of the left kidney as compared to the right. A small hiatal hernia is identified. Nodularity of the left adrenal gland is similar to previous. Skeletal structures: The skeletal structures are osteopenic. Degenerative change and mild hyperkyphosis are noted in the thoracic spine. No lytic or blastic bony lesions are seen. A left anterior fifth rib fracture is likely on a postoperative basis. Soft tissues: There are small foci of subcutaneous gas as well as induration along the left chest wall. IMPRESSION: 1. Cardiomegaly and emphysema with evidence of pulmonary artery hypertension. 2. There are postoperative changes consistent left upper lobe resection, new from 05/27/2017. 3. There is a large and loculated hyperdense pleural collection identified at the left apex along the left superior mediastinal border. This likely represents a hematoma. 4. There is a small to moderate and at least partially loculated and complex appearing fluid collection at the left lung base. Numerous bubbly foci of extrapleural gas are seen throughout the left pleural space. This may simply be related to recent surgery. Superimposed infection would be impossible to exclude. Clinical correlation will be required. 5. There is fluid within the mediastinum. A 2 x 2 cm pocket of gas and fluid is seen in the pretracheal region. Again, this could represent postoperative change versus superimposed infection. Clinical correlation will again be required. 6. Prominent prevascular lymph nodes are similar to previous. 7. There is a trace right pleural effusion. The right lung is otherwise grossly clear. 8. Postoperative change is seen on the left chest wall. A left anterior fifth rib fracture is likely related to recent surgery. 9. Additional findings as above. Electronically signed by: Jeremiah Tang M.D. 07/21/2017 10:53 AM Dictated Date/Time: 07/21/2017 10:38 AM
--- NOTE | 2017-07-21 11:23 | SURGERY PROGRESS NOTE ---
DATE: 07/21/2017 DATE: 07/21/2017 SUBJECTIVE: Narcisa Collado was seen this morning. She looks good. I ordered a CT scan and she does have some fluid up in her internal mammary artery bed with a small amount of air, but I am not concerned about this. I think this was a small hematoma. I am more concerned about her base. She does have some complicated fluid there, but it is not very much and I do not think this is impacting us from a pulmonary standpoint. She is still on 2 liters, but her A-a gradient is improved. She is 95-99% on room air. She responded well to Lasix yesterday after her blood with output of over 2700 mL. I reviewed her pathology with Dr. Sellers and all of her nodes are negative. The tumor did extend through the visceral pleura, but not the parietal which makes her a T2N0M0, or stage I lung carcinoma. She remains in atrial fibrillation but is hemodynamically stable. I discussed this with Dr. Chivo Pulido. I am going to start anticoagulation today. We also increased her metoprolol to control her ate to see if we can get her off the amiodarone drip and hopefully home in the next few days. I had a long talk with the patient and her at bedside. I have explained them that I believe she is going to convert in the future. ASSESSMENT AND PLAN: 1. Postoperative day #5 status post thoracoscopic left upper lobectomy. 2. Atrial fibrillation. PLAN: Please see above.
[2017-07-21 11:57] LABS: INR 0.9 (0.9-1.1); PARTIAL THROMBOPLASTIN RATIO 1.1; PROTHROMBIN TIME (PATIENT) 9.9 SECONDS (9.0-12.0)
[2017-07-21] MEDS: HEPARIN 25,000 UNIT/500ML D5W 500 ML IV PRN ×2 (12:11→19:52)
[2017-07-21 19:06] LABS: PARTIAL THROMBOPLASTIN RATIO 1.7
[2017-07-21] MEDS ORDERED: HEPARIN IV BOLUS 2,000 UNIT in SYRINGE 0 ML IV ONE (19:45)
[2017-07-21] MEDS: ROSUVASTATIN CALCIUM 20 MG TAB PO SCH (20:45)
[2017-07-21] MEDS: ISOSORBIDE DINITRATE 10 MG TAB PO SCH (20:45)
[2017-07-21] MEDS: METOPROLOL SUCC 50MG EXT REL TAB PO SCH (20:47)
[2017-07-22] MEDS: ONDANSETRON INJ 2 MG/ML 2 ML VIAL IV PRN (01:41)
[2017-07-22] MEDS: AMIODARONE / D5W 200 ML IV SCH ×2 (01:44→14:29)
[2017-07-22 02:42] LABS: PARTIAL THROMBOPLASTIN RATIO 2.2
[2017-07-22 04:02] VITALS: BP 119/74; PULSE 83; TEMP 36.8; O2SAT 93
[2017-07-22 07:00] LABS: MEAN CELL VOLUME 85.4 fL (80-100); MEAN CORPUSCULAR HEMOGLOBIN 28.5 pg (25-34); MEAN CORPUSCULAR HGB CONC 33.3 g/dl (32-36); MEAN PLATELET VOLUME 10.1 fL (7.4-10.4); PLATELET COUNT 251 K/uL (130-400); RED BLOOD COUNT 3.16 M/uL (4.2-5.4); WHITE BLOOD COUNT 7.55 K/uL (4.8-10.8)
[2017-07-22 07:23] LABS: PARTIAL THROMBOPLASTIN RATIO 2.3
--- NOTE | 2017-07-22 07:40 | DIAGNOSTIC IMAGING REPORT ---
CHEST ONE VIEW PORTABLE HISTORY: effusion COMPARISON: Chest 07/21/2017. FINDINGS: Poststernotomy changes. Small to moderate loculated left pleural effusion and left pleural thickening persists. The left. Mediastinal opacity most pronounced at the apex remains unchanged. There are surgical clips within the left hilum. The heart is stable in size. Mild interstitial vascular thickening within the right lung. No pneumothorax. Left basilar densities persist. IMPRESSION: 1. No change compared to the prior study. 2. No pneumothorax. 3. [id number] partially loculated left pleural effusion persist. 4. Mild pulmonary vascular congestion. 5. No change in the left paramediastinal density most pronounced within the left lung apex. This corresponds to the suspected loculated hemothorax. Electronically signed by: Benjamin Buchanan M.D. 07/22/2017 7:38 AM Dictated Date/Time: 07/22/2017 7:34 AM
[2017-07-22 07:45] VITALS: BP 135/77; PULSE 111; TEMP 36.9; O2SAT 92
[2017-07-22] MEDS: AMLODIPINE BESYLATE 5 MG TAB PO SCH (07:46)
[2017-07-22] MEDS: ASPIRIN 81 MG ECTAB PO SCH (07:46)
[2017-07-22] MEDS: POLYETHYLENE (MIRALAX) 17 GM PACK PO SCH ×2 (07:46→19:29)
[2017-07-22] MEDS: DOCUSATE SODIUM 100 MG CAP PO SCH ×2 (07:46→19:29)
[2017-07-22] MEDS: METOPROLOL SUCC 50MG EXT REL TAB PO SCH (07:47)
[2017-07-22] MEDS: SERTRALINE HCL 50 MG TAB PO SCH ×2 (07:47→19:29)
[2017-07-22] MEDS: TIOTROPIUM BROMIDE-OLODATEROL 2.5-2.5MCG/ACT INH SCH (07:47)
[2017-07-22] MEDS: FUROSEMIDE 20 MG TAB PO SCH (07:47)
[2017-07-22] MEDS: INSULIN ASPART 100 UNITS/ML 3 ML PEN SC SCH ×4 (07:56→20:53)
[2017-07-22] MEDS: HEPARIN 25,000 UNIT/500ML D5W 500 ML IV PRN (07:57)
--- NOTE | 2017-07-22 09:49 | Cardiology Follow-Up ---
Subjective Date of Service: Jul 22, 2017. Pt evaluation today including: conversation w/ patient, conversation w/ family , physical exam, lab review, review of studies, review of inpatient medication list, conversation w/ attending History of Present Illness This is a very pleasant 71-year-old woman who has a history of bypass surgery in 2005 (JEWELL to the LAD, vein graft to obtuse marginal). She had early graft failure and required stents to the vein graft and to the distal JEWELL in April 2006. 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 She has moderate mitral regurgitation (including a DORETHA on November 2016). 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 She also had carotid endarterectomy in February 2016. She is reported to have chronic angina (although she tells me she does not get chest discomfort). She had a nuclear stress test 07/01/2017 which was negative for ischemia. All of this took place through [facility] ([place] and [place]). 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 She had been doing well postoperatively but was noted to have a rapid heart rate (she is unaware of it) and was in atrial fibrillation and also was noted to be significantly anemic. She was transferred to telemetry, placed on IV amiodarone and her beta blockade was increased for rate control. She has remained tachycardic however and remains in atrial fibrillation. She is currently feeling well from the cardiovascular standpoint, she has no palpitations (although remains in atrial fibrillation). She is doing well from a surgical standpoint and seems to have no difficulty with bleeding, still on a heparin infusion. Social History Smoking Status: Former Smoker History of Alcohol Use: No Review of Systems Respiratory: No cough, No wheezing, No shortness of breath, No dyspnea on exertion Cardiac: No chest pain, No orthopnea, No PND, No edema, No palpitations Medications Cardiovascular: Item Value Date Time Metoprolol 50 mg 07/21/17 2100 Succinate BID/PO 07/22/17 0747 (Toprol Xl Tab) Amiodarone HCL/ 200 ml @ 16.7 mls/hr 07/20/17 1515 Dextrose .[id number] 07/22/17 0144 Furosemide 20 mg 07/17/17 1100 (Lasix Tab) QAM/PO 07/22/17 0747 Amlodipine 10 mg 07/17/17 0900 Besylate QAM/PO 07/22/17 0746 (Norvasc Tab) Aspirin 81 mg 07/17/17 0900 (Ecotrin Tab) QAM/PO 07/22/17 0746 Rosuvastatin 40 mg 07/16/17 2100 Calcium HS/PO 07/21/172044 (Crestor Tab) Isosorbide 30 mg 07/16/17 2100 Dinitrate HS/PO 07/21/172044 (Isordil Tab) Objective Vital Signs Past 12 Hours Date Time Temp Pulse Resp B/P (MAP) Pulse Ox O2 Delivery O2 Flow Rate FiO2 07/22/17 07:45 36.9 111 20 135/77 (96) 92 Nasal Cannula 2.0 07/22/17 07:30 Nasal Cannula 2.0 07/22/17 04:03 Nasal Cannula 2.0 07/22/17 04:02 36.8 83 20 119/74 (89) 93 Nasal Cannula 2.0 07/22/17 00:00 Nasal Cannula 2.0 07/21/17 23:40 36.9 111 16 116/70 (85) 91 Nasal Cannula 2.0 Last Recorded Weight-Kilograms: 74.000 Physical Exam Constitutional: Level of Distress: NAD Lungs: Respiratory effort: no dyspnea, good air movement Auscultation: no wheezing, decreased breath sounds (on the left) Cardiovascular: Heart Auscultation: no rubs, no gallops, tachycardia, II/ WSM, irregular rate rhythm Peripheral Pulses: Bruits: none appreciated Extremities: no edema Data Laboratory Results: Last 24 Hours Test 07/21/17 10:59 07/21/17 11:39 07/21/17 16:38 07/21/17 18:07 Bedside Glucose 236 mg/dl 132 mg/dl Prothrombin Time 9.9 SECONDS Prothromb Time International Ratio 0.9 Activated Partial Thromboplast Time 28.2 SECONDS 44.6 SECONDS Partial Thromboplastin Ratio 1.1 1.7 Test 07/21/17 20:13 07/22/17 02:06 07/22/17 06:22 07/22/17 07:13 Bedside Glucose 259 mg/dl 200 mg/dl Activated Partial Thromboplast Time 57.6 SECONDS 58.7 SECONDS Partial Thromboplastin Ratio 2.2 2.3 White Blood Count 7.55 K/uL Red Blood Count 3.16 M/uL Hemoglobin 9.0 g/dL Hematocrit 27.0 % Mean Corpuscular Volume 85.4 fL Mean Corpuscular Hemoglobin 28.5 pg Mean Corpuscular Hemoglobin Concent 33.3 g/dl RDW Standard Deviation 52.4 fL RDW Coefficient of Variation 16.9 % Platelet Count 251 K/uL Mean Platelet Volume 10.1 fL Nucleated RBC Absolute Count (auto) 0.03 K/uL Nucleated Red Blood Cells % 0.4 % Telemetry reviewed: 1 atrial fibrillation, remains with a rapid heart rate of over 100 bpm on average. Assessment and Plan #1. Atrial fibrillation: She has been in atrial fibrillation for around 48 hours now, on intravenous heparin since yesterday morning. Her heart rate is fast on her current medical regimen including amiodarone and beta blockade. Although amiodarone may continue to accumulate and control heart rate I think she would be better off in sinus rhythm. It should be safe to convert her, she was anticoagulated starting 24 hours after onset of the atrial arrhythmia. I discussed cardioversion with her, her daughter and her . I discussed the indications, procedure, risks and alternatives and they understand and she agrees to proceed. Consent obtained. We will plan on doing this tomorrow morning. #2. Acute blood loss: Her hemoglobin came up nicely following transfusion and has remained relatively stable, this would be consistent with no active bleeding. #3. Coronary artery disease: She has well known coronary artery disease, but no evidence of ischemia on stress testing several weeks ago. She doesn't have symptoms of chest discomfort during this arrhythmia, although evidently she does not have chest discomfort although she may have dyspnea on exertion as an anginal equivalent. Her electrocardiogram suggests ischemia but may also be secondary to rapid heart rates. Her troponin measurements have been negative. Thank you for allowing me to participate in her care.
[2017-07-22] MEDS: OXYCODONE HCL IR 5 MG TAB (IMMEDIATE RELEASE) PO PRN (11:20)
[2017-07-22 11:24] VITALS: BP 137/57; PULSE 100; TEMP 37.1; O2SAT 95
[2017-07-22 15:28] VITALS: BP 116/61; PULSE 96; TEMP 36.8; O2SAT 95
[2017-07-22] MEDS: MoRPHine SULFATE 2 MG/ML CARP IV PRN (15:46)
--- NOTE | 2017-07-22 17:29 | SURGERY PROGRESS NOTE ---
DATE: 07/22/2017 SUBJECTIVE: Ms. Collado was seen today on 07/22/2017. She looks very good. She would like to go home. She is now postop day #6 status post thoracoscopic left upper lobectomy for an early stage lung cancer. Her chest tube has been out for a few days. I think her x-ray looks a bit better today. We did check a CT scan yesterday, she has a probable loculated hematoma which is fairly small in her left internal mammary artery bed. In addition, she has a small area of loculated fluid at her base, but I do not think this will require an intervention. Her biggest problem is she is now in a persistent atrial fibrillation, which started about 3 days ago. Her white count is stable 7550 with a hemoglobin of 9.0. Her blood sugars have been a bit better controlled. She is still in afib today but her A-a gradient is stable at 95% on 2 liters. I had a long talk with the patient and her and her daughter today. In addition, I discussed this case with Dr. Chivo Pulido. Heart rate has been poorly controlled despite the use of amiodarone and metoprolol. Dr. Pulido is planning on performing a cardioversion tomorrow. She has been on heparin. [facility]
[2017-07-22 19:25] VITALS: BP 158/82; PULSE 116; TEMP 36.6; O2SAT 92
[2017-07-22] MEDS: ISOSORBIDE DINITRATE 10 MG TAB PO SCH (19:28)
[2017-07-22] MEDS: ROSUVASTATIN CALCIUM 20 MG TAB PO SCH (19:29)
[2017-07-22 23:19] VITALS: BP 118/68; PULSE 111; TEMP 37; O2SAT 93
[2017-07-23] VITALS (8 sets, daily range): BP systolic 114–144; BP diastolic 52–80; PULSE 68–113; TEMP 36.7–36.8; O2SAT 92–98
[2017-07-23] MEDS: AMIODARONE / D5W 200 ML IV SCH (02:11)
[2017-07-23] MEDS: HEPARIN 25,000 UNIT/500ML D5W 500 ML IV PRN (03:52)
--- NOTE | 2017-07-23 07:58 | [facility] Operative Report ---
Operative Report Operative Date Jul 23, 2017. Pre-Operative Diagnosis Persistent atrial fibrillation Post-Operative Diagnosis same Procedure(s) Performed Electrical cardioversion Surgeon Dr. Pulido Grievance And Appeals Coordinator Surgeon(s) none Estimated Blood Loss none Findings Successful cardioversion with 200 J Specimens None Anesthesia Via anesthesia department Complication(s) None Disposition PCU Description of Procedure The patient was brought to the laboratory being NPO after midnight and was identified in the laboratory, connected to the recording apparatus including electrocardiographic monitoring, noninvasive blood pressure monitoring and pulse oximetry. Anteroposterior patch electrodes were placed. The patient was anesthetized by the anesthesia department. Once adequate anesthesia was obtained a synchronized biphasic shock was delivered using 200 J with conversion to a sinus rhythm. The patient awoke from the anesthetic without sequela, will be observed briefly and then discharged back to the PCU. I attest to the content of the Intraoperative Record and any orders documented therein. Any exceptions are noted below.
[2017-07-23] MEDS: POLYETHYLENE (MIRALAX) 17 GM PACK PO SCH (09:00)
[2017-07-23] MEDS: INSULIN ASPART 100 UNITS/ML 3 ML PEN SC SCH ×2 (09:07→12:16)
[2017-07-23] MEDS: TIOTROPIUM BROMIDE-OLODATEROL 2.5-2.5MCG/ACT INH SCH (09:07)
[2017-07-23] MEDS: DOCUSATE SODIUM 100 MG CAP PO SCH (09:07)
[2017-07-23] MEDS: ASPIRIN 81 MG ECTAB PO SCH (09:08)
[2017-07-23] MEDS: FUROSEMIDE 20 MG TAB PO SCH (09:08)
[2017-07-23] MEDS: AMLODIPINE BESYLATE 5 MG TAB PO SCH (09:09)
[2017-07-23] MEDS: SERTRALINE HCL 50 MG TAB PO SCH (09:09)
--- NOTE | 2017-07-23 10:03 | Anesthesiology Progress Note ---
Anesthesia Post Op Note Date & Time Jul 23, 2017 at 10:03 Vital Signs Pain Intensity: 0 Vital Signs Past 12 Hours Date Time Temp Pulse Resp B/P (MAP) Pulse Ox O2 Delivery O2 Flow Rate FiO2 07/23/17 08:18 68 16 129/69 (89) 98 Nasal Cannula 4 07/23/17 08:08 69 16 135/58 (83) 98 Nasal Cannula 4 07/23/17 07:58 68 16 125/52 98 Room Air 07/23/17 07:55 69 16 128/68 98 Room Air 07/23/17 07:50 69 16 132/78 96 Nasal Cannula 4 07/23/17 07:46 69 16 128/57 96 Nasal Cannula 4 07/23/17 07:44 109 16 144/80 96 Nasal Cannula 4 07/23/17 07:11 36.8 113 18 114/67 92 Nasal Cannula 2.0 96 07/23/17 04:43 36.8 113 18 114/67 (83) 92 Nasal Cannula 2.0 07/23/17 04:00 Nasal Cannula 2.0 07/23/17 00:00 Nasal Cannula 2.0 07/22/17 23:19 37.0 111 16 118/68 (85) 93 Nasal Cannula 2.0 Notes Mental Status: alert / awake / arousable, participated in evaluation Pt Amnestic to Procedure: Yes Nausea / Vomiting: adequately controlled Pain: adequately controlled Airway Patency, RR, SpO2: stable & adequate BP & HR: stable & adequate Hydration State: stable & adequate Anesthetic Complications: no major complications apparent
[2017-07-23] MEDS ORDERED: ELQ25 PO (10:12)
[2017-07-23] MEDS ORDERED: CRD200 PO (10:12)
[2017-07-23] MEDS ORDERED: TPRSR50 PO (10:12)
[2017-07-23] MEDS ORDERED: [UNRECOGNIZED DRUG - REMARK] SCH (10:45)
[2017-07-23] MEDS ORDERED: APIXABAN 2.5 MG TAB PO SCH (11:00)
--- NOTE | 2017-07-23 12:46 | DISCHARGE SUMMARY ---
DISCHARGE DIAGNOSES: 1. 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 2. Postoperative atrial fibrillation 3. Anemia of blood loss. 4. Hypoxemia. 5. Chronic obstructive pulmonary disease. 6. History of cigarette smoking. 7. Peripheral vascular disease. 8. Coronary artery disease. 9. Gastroesophageal reflux disease. 10. Renal insufficiency. 11. Depression. 12. Diabetes mellitus. HOSPITAL COURSE: A 71-year-old female was referred to me by Dr. Juan Julian from [facility] for a nonsmall cell lung carcinoma of the left upper lobe. I evaluated the patient and felt despite the fact that she has multiple comorbidities, I felt she would be a candidate for resection. On 07/16/2017, I took to patient to the operating room. Complicating problems with the patient is coronary artery disease. She underwent a cardiac catheterization by her die repairer trimmer dies in [place] preoperatively. Dr. Schofield cleared her for surgery and she came for preop testing and her creatinine increased from 1.5 to the high 2s. This was trending down and by the time I took her to the operating room, she was back down into high one-teens. She has a history of renal insufficiency. The other problem was that she had an internal mammary artery graft which was supplying much of her heart. This appeared to be essentially embedded within the left upper lobe, by CT. On 07/16/2017, I took the patient to the operating room and performed a thoracoscopic left upper lobectomy. She had marked adhesions and we did take all of these down. I also was able to get this mass off the chest wall and this was not going into the chest. I was spent all a long period of time dissecting up the internal mammary artery graft. I ended up having to take all of the vessels and airways to the lobe and flipping it up, so I could come up posteriorly but finally got it down and we really had no issues with that. She had a large raw surface of her chest wall we had taken down adhesions, meticulously were 12 of these. She had extubated in the room and I was quite happy with her and in room air, had blood loss was only about 200 mL. She put out 500-600 mL after surgery and then her hemoglobin dropped. After third postoperative day, she went into atrial fibrillation. She also dropped her hemoglobin down to 69. She became a bit more tachycardic, so it transfused 2 units of blood as Dr[address] Chivo Pulido from electrophysiology to evaluate. We tried amiodarone drip, metoprolol and other modalities, but could not get her rate under good control. For this reason, Dr. Pulido performed a cardioversion in the morning of 07/23/2017. This worked nicely and she went back into a sinus rhythm. We had pulled her chest tube a few days before and were anticoagulated with heparin. It should be noted that her chest x-ray showed some thickening medially, left pleural cavity as a pleural effusion. I did a CT scan and we could see where we had dissected out the bed of the internal mammary pedicle and I was not too concerned about this. There was a small amount of air here. I was a bit more concerned about the basilar complex effusion; however, I did not think it was large enough to warrant an intervention. Anyway, the patient was ambulating in the hallway. She is eating well. She looked quite good and all her incisions were healed nicely. We sent her home on postoperative day #7 to follow up with Dr. Kanwal camejo for atrial fibrillation. We placed her on Eliquis as well as aspirin.
[2017-07-23] MEDS: OXYCODONE HCL IR 5 MG TAB (IMMEDIATE RELEASE) PO PRN (13:53)
[2017-07-23] MEDS ORDERED: AMIODARONE 200 MG TAB PO SCH (21:00)
== END 2017-07-23 15:24 | disposition home health service (06) | DRG 164 ==
LOC: C.ACU 10:10 → C.MSICU 18:10 → ENRESERV 18:52 → C.3E 07-17 11:07 → ENRESERV 07-20 09:29 → C.2T 07-20 10:29
PROVIDERS: ADMIT Surgery; ATTEND Surgery
PROC: 07B74ZX Excision of Thorax Lymphatic, Percutaneous Endoscopic Approach, Diagnostic (ICD-10-PCS; principal; 2017-07-16 12:15)
PROC: 07B74ZZ Excision of Thorax Lymphatic, Percutaneous Endoscopic Approach (ICD-10-PCS; principal; 2017-07-16 12:15)
PROC: 0BTG4ZZ Resection of Left Upper Lung Lobe, Percutaneous Endoscopic Approach (ICD-10-PCS; principal; 2017-07-16 12:15)
PROC: 0BNJ4ZZ Release Left Lower Lung Lobe, Percutaneous Endoscopic Approach (ICD-10-PCS; principal; 2017-07-16 12:15)
PROC: 5A2204Z Restoration of Cardiac Rhythm, Single (ICD-10-PCS; 2017-07-23)
DX: C34.12 Malignant neoplasm of upper lobe, left bronchus or lung (principal); D62 Acute posthemorrhagic anemia; J98.4 Other disorders of lung; I48.91 Unspecified atrial fibrillation; J44.9 Chronic obstructive pulmonary disease, unspecified; I12.9 Hypertensive chronic kidney disease with stage 1 through stage 4 chronic kidney disease, or unspecified chronic kidney disease; N18.2 Chronic kidney disease, stage 2 (mild); E11.22 Type 2 diabetes mellitus with diabetic chronic kidney disease; F32.9 Major depressive disorder, single episode, unspecified; K21.9 Gastro-esophageal reflux disease without esophagitis; E11.65 Type 2 diabetes mellitus with hyperglycemia; I25.10 Atherosclerotic heart disease of native coronary artery without angina pectoris; Z79.02 Long term (current) use of antithrombotics/antiplatelets; Z79.82 Long term (current) use of aspirin; Z79.84 Long term (current) use of oral hypoglycemic drugs; Z79.899 Other long term (current) drug therapy

== ENCOUNTER → 2017-08-19 | Outpatient (CLI) | payer OTHER ==
[~2017-08-19] MED LIST changes: -ATROPINE SULFATE 0.1 MG/ML 5ML SYR IV PRN; +CLC100 PO; -CLOP1TAB15 PO; +CRD200 PO; +ELQ25 PO; -EpHEDrine SULFATE INJ 50 MG/ML AMP IV PRN; -FENTANYL CITRATE INJ 50 MCG/1 ML 2 ML VIAL IV PRN; -HYDROmorphone INJ 1 MG/ML SYR IV PRN; -ISOS30TA51 PO; +ISR/30 PO; -METO1TAB69 PO; -ONDANSETRON INJ 2 MG/ML 2 ML VIAL IV PRN; -PRLSR20 PO; -RAMI5CAP32 PO; -SODIUM CHLORIDE 0.9% 1000ML 1,000 ML IV SCH; +TPRSR50 PO; +TRAM-10 PO
--- NOTE | 2017-08-19 10:04 | DIAGNOSTIC IMAGING REPORT ---
CHEST 2 VIEWS ROUTINE CLINICAL HISTORY: J90 Pleural [id number] dyspnea COMPARISON STUDY: 07/22/2017 FINDINGS: Improved aeration left hemithorax. Postoperative changes consistent with a prior left-sided lobectomy. Multiple surgical clips left perihilar and left perimediastinal distribution. Prior median sternotomy. Slight blunting right lateral gastric angle. Minimal residual pleural thickening left base. No significant postprocedural pneumothorax. IMPRESSION: Improving chest compared to the prior study with considerable improvement in aeration left hemithorax. Stable postoperative change. The above report was generated using voice recognition software. It may contain grammatical, syntax or spelling errors. Electronically signed by: Samuel Haq M.D. 08/19/2017 10:02 AM Dictated Date/Time: 08/19/2017 10:01 AM
== END | disposition home or self-care (01) ==
LOC: C.RAD 09:10
PROVIDERS: ATTEND Surgery
DX: J90 Pleural effusion, not elsewhere classified (principal); Z98.890 Other specified postprocedural states